=== PATIENT | male | born 1970 | race Caucasian/White ===

== ENCOUNTER 2017-01-11 12:37 | Inpatient (IN) | payer BC ==
[~2017-01-11] VITALS: Ht 185.4 cm; Wt 114.9 kg
[~2017-01-11 12:37] MED LIST: DRV100 PO
[2017-01-11] MEDS ORDERED: SODIUM CHLORIDE 0.9% 1000ML 1,000 ML IV STA (13:09)
--- NOTE | 2017-01-11 13:11 | EMERGENCY ROOM VISIT NOTE ---
History First contact with patient: 12:56 Chief Complaint: FEVER Stated Complaint: INSECT BITE TO LEFT UPPER LEG, FEVER History of Present Illness The patient is a 46 year old male who presents to the Emergency Room via private vehicle accompanied by family with complaints of "insect bite to left upper leg, fever". The patient states that Sunday, he was in [place] when he developed a small red bump on the left lateral thigh just inferior to the hip joint. The patient states that he believes it may be an insect bite. He then developed fevers. He states he did not take his temperature, but felt warm. He notes that the area of redness is now enlarging and the center is turning black. He notes that the pain with certain movements is a 3-4/10. At rest the pain is a 0/10. He started Bactrim every 12 hours on Sunday evening, and has had a total of 4 doses thus far. He's been taking Motrin 800 mg around- the-clock for his fever. His also had him take Benadryl, Zantac ranitidine. He denies any close contacts with similar symptoms. There is associated chills. He denies any nausea, vomiting, chest pain, shortness of breath, recent tick bites. Review of Systems A complete 10-point Review of Systems was discussed with the patient, with pertinent positives and negatives listed in the History of Present Illness. All remaining Review of Systems questions can be considered negative unless otherwise specified. Past Medical/Surgical History Medical Problems: (1) Cellulitis Family History No pertinent family history. Social History Smoking Status: Never Smoker Social History: Patient is currently employed. He competes in [employer]. Current/Historical Medications Scheduled Sulfamethoxazole-Trimethoprim (Bactrim Ds 800MG/160MG), 1 TAB PO BID Allergies Coded Allergies: No Known Allergies (Unverified , 06/01/04) Physical Exam Vital Signs Date Time Temp Pulse Resp B/P Pulse Ox O2 Delivery O2 Flow Rate FiO2 01/11/17 14:28 62 22 130/79 96 Room Air 01/11/17 13:37 95 Room Air 01/11/17 13:28 80 01/11/17 12:45 36.9 76 18 157/89 95 Room Air Physical Exam VITAL SIGNS - Vital signs and nursing notes were reviewed. Afebrile, hypertensive 157/89, non-tachycardic and is saturating well on room air at 95%. GENERAL -46-year-old male appearing his stated age who is in no acute distress. Communicates well with provider and answers questions appropriately. SKIN -there is a 13 x 25 cm erythematous region, with a central ascending about 8cm x8cm indurated darkened erythematous region with a 2 cm x 2 cm black center. This is nonfluctuant. HEAD - NC/AT. EYES - PERRL with EOMI bilaterally. Sclera anicteric. Palpebral conjunctiva pink and moist with no injection noted. EARS - No deformities of external structures noted on gross examination bilaterally. NOSE - Midline and without cyanosis. No epistaxis or purulent drainage noted. MOUTH/OROPHARYNX - Without perioral cyanosis. Buccal mucosa pink and moist and without leukoplakia. Tongue midline with equal elevation of palate bilaterally. No tonsillar hypertrophy, erythema, or exudates noted. Fair dentition noted. NECK - Neck with FROM. Supple to palpation. No lymphadenopathy noted. No nuchal rigidity. No meningismus. LUNGS - Chest wall symmetric without accessory muscle use, intercostals retractions, or central cyanosis. Normal vesicular breath sounds CTA B/L. No wheezes, rales, or rhonchi appreciated. CARDIAC - RRR with S1/S2. No murmur, rubs, or gallops appreciated. ABDOMEN - Abdominal contour without pulsations or visible masses. BS normoactive all four quadrants. No tenderness, palpable masses, hepatosplenomegaly, or ascites noted. EXTREMITIES - No clubbing or peripheral cyanosis. No pretibial edema present. Skin as described above. Remainder of the left lower extremity is unremarkable. No lymphangitic streaking. +5/5 strength noted in UE/LE bilaterally. Medical Decision & Procedures ER Provider Diagnostic Interpretation: LEFT THIGH ULTRASOUND CLINICAL HISTORY: Left thigh induration with darkened center. COMPARISON STUDY: No previous studies for comparison. FINDINGS: Sonography of the left thigh was performed and demonstrated no fluid collection to suggest an abscess. There was subcutaneous edema. Subcutaneous gas is difficult to assess for by sonography. IMPRESSION: No left thigh abscess identified by sonography. Left thigh subcutaneous edema which may reflect cellulitis. Electronically signed by: Ronnie Land M.D. 01/11/2017 2:12 PM Dictated Date/Time: 01/11/2017 2:10 PM Laboratory Results 01/11/17 13:20 Red Blood Count 4.82, Mean Corpuscular Volume 90.9, Mean Corpuscular Hemoglobin 30.9, Mean Corpuscular Hemoglobin Concent 34.0, Mean Platelet Volume 10.1, Neutrophils (%) (Auto) 65.1, Lymphocytes (%) (Auto) 21.7, Monocytes (%) (Auto) 11.9, Eosinophils (%) (Auto) 0.9, Basophils (%) (Auto) 0.2, Neutrophils # (Auto ) 4.12, Lymphocytes # (Auto) 1.37, Monocytes # (Auto) 0.75, Eosinophils # (Auto ) 0.06, Basophils # (Auto) 0.01 01/11/17 13:20 Test 01/11/17 13:20 01/11/17 13:35 White Blood Count 6.32 K/uL (4.8-10.8) Red Blood Count 4.82 M/uL (4.7-6.1) Hemoglobin 14.9 g/dL (14.0-18.0) Hematocrit 43.8 % (42-52) Mean Corpuscular Volume 90.9 fL (80-100) Mean Corpuscular Hemoglobin 30.9 pg (25-34) Mean Corpuscular Hemoglobin Concent 34.0 g/dl (32-36) Platelet Count 156 K/uL (130-400) Mean Platelet Volume 10.1 fL (7.4-10.4) Neutrophils (%) (Auto) 65.1 % Lymphocytes (%) (Auto) 21.7 % Monocytes (%) (Auto) 11.9 % Eosinophils (%) (Auto) 0.9 % Basophils (%) (Auto) 0.2 % Neutrophils # (Auto) 4.12 K/uL (1.4-6.5) Lymphocytes # (Auto) 1.37 K/uL (1.2-3.4) Monocytes # (Auto) 0.75 K/uL (0.11-0.59) Eosinophils # (Auto) 0.06 K/uL (0-0.5) Basophils # (Auto) 0.01 K/uL (0-0.2) RDW Standard Deviation 43.5 fL (36.4-46.3) RDW Coefficient of Variation 12.9 % (11.5-14.5) Immature Granulocyte % (Auto) 0.2 % Immature Granulocyte # (Auto) 0.01 K/uL (0.00-0.02) Anion Gap 6.0 mmol/L (3-11) Est Creatinine Clear Calc Drug Dose 101.1 ml/min Estimated GFR () 83.0 Estimated GFR (Non- 71.6 BUN/Creatinine Ratio 11.1 (10-20) Calcium Level 8.4 mg/dl (8.5-10.1) Total Bilirubin 0.4 mg/dl (0.2-1) Aspartate Amino Transf (AST/SGOT) 27 U/L (15-37) Alanine Aminotransferase (ALT/SGPT) 49 U/L (12-78) Alkaline Phosphatase 78 U/L (45-117) Total Protein 7.2 gm/dl (6.4-8.2) Albumin 3.3 gm/dl (3.4-5.0) Globulin 3.9 gm/dl (2.5-4.0) Albumin/Globulin Ratio 0.8 (0.9-2) Bedside Lactic Acid Venous 0.78 mmol/L (0.90-1.70) Medications Administered Medications (Trade) Dose Ordered Sig/Rosario Route Start Time Stop Time Status Last Admin Dose Admin Sodium Chloride 1,000 ml @ 999 mls/hr Q1H1M STAT IV 01/11/17 13:09 01/11/17 14:09 DC 01/11/17 13:09 999 MLS/HR Vancomycin HCl/ Sodium Chloride (Vancomycin Inj/ Nss 500ml) 546 ml @ 200 mls/hr ONE STAT IV 01/11/17 13:28 01/11/17 16:11 DC 01/11/17 14:25 200 MLS/HR Piperacillin Sod/ Tazobactam Sod 4.5 gm 4.5 gm NOW STAT IV 01/11/17 13:28 01/11/17 13:31 DC 01/11/17 13:28 4.5 GM Clindamycin Phosphate/Dextrose (Cleocin Iv/ Dextrose Add-Mineral 100ML) 106 ml @ 100 mls/hr NOW ONCE IV 01/11/17 13:30 01/11/17 14:33 DC 01/11/17 14:39 100 MLS/HR Acetaminophen (Tylenol Tab) 650 mg Q4H PRN PO 01/11/17 15:45 02/10/17 15:44 01/11/17 22:08 650 MG Medical Decision Patient was seen and evaluated as above. He presents today with stable vital signs, however he has received [id number] Motrin. Chief complaint is insect bite with fever. Clinically he appears to have cellulitis, with a central indurated region. IV access was initiated, and the above workup was performed. There is concern for sepsis given his subjective history. He certainly has sialitis on exam, there is concern for abscess. Consent was obtained. No fluid collection noted. I did outline the area of induration with a felt-tipped pen. Patient did not want any for pain. He was hydrated with normal saline. I did review the case with our pharmacist, and the decision was made to give the patient 4.5 g of Zosyn, 2300mg of vancomycin, and 900 mg of clindamycin. Patient tolerated this well. At this time, I do believe it is appropriate to consider admission for the patient. All of his vital signs are stable, he typically has failed outpatient management with Bactrim. I did discuss the case with my attending, and subsequently the hospitalist. Lab work does not reveal any concerning emergent findings. I did discuss the case with hospitalist, who agreed to further evaluate the patient. Please refer to further documentation regarding his stay. In evaluation treatment this patient following differential diagnoses entertained: Cellulitis, SIRS, sepsis, abscess, among others. Impression Primary Impression: Cellulitis Departure Information Dispostion Admitted as an inpatient Condition FAIR Referrals No Doctor, Assigned (PCP) Patient Instructions My [facility]
[2017-01-11] MEDS ORDERED: PIPERACILLIN/TAZOBACTAM 4.5 GM/100ML D5W IV STA (13:28)
[2017-01-11] MEDS ORDERED: VANCOMYCIN INJ 2,300 MG in SODIUM CHLORIDE 0.9% 500ML 500 ML IV STA (13:28)
[2017-01-11] MEDS ORDERED: CLINDAMYCIN IV 900 MG in DEXTROSE 5% ADD-VANTAGE 100ML 100 ML IV ONE (13:30)
[2017-01-11 13:55] LABS: BASO % 0.2 %; BASO ABS # 0.01 K/uL (0-0.2); COMPLETE YES; EOS % 0.9 %; HEMATOCRIT 43.8 % (42-52); IG% 0.2 %; LYMPH % 21.7 %; LYMPH ABS # 1.37 K/uL (1.2-3.4); MEAN CELL VOLUME 90.9 fL (80-100); MEAN CORPUSCULAR HEMOGLOBIN 30.9 pg (25-34); MEAN PLATELET VOLUME 10.1 fL (7.4-10.4); MONO % 11.9 %; NEUT % 65.1 %; PLATELET COUNT 156 K/uL (130-400); RED BLOOD COUNT 4.82 M/uL (4.7-6.1); WHITE BLOOD COUNT 6.32 K/uL (4.8-10.8)
[2017-01-11 14:13] LABS: BUN/CREATININE RATIO 11.1 (10-20); CALCIUM 8.4 mg/dl (8.5-10.1); CREATININE 1.2 mg/dl (0.60-1.40); POTASSIUM 3.8 mmol/L (3.5-5.1)
--- NOTE | 2017-01-11 14:13 | DIAGNOSTIC IMAGING REPORT ---
LEFT THIGH ULTRASOUND CLINICAL HISTORY: Left thigh induration with darkened center. COMPARISON STUDY: No previous studies for comparison. FINDINGS: Sonography of the left thigh was performed and demonstrated no fluid collection to suggest an abscess. There was subcutaneous edema. Subcutaneous gas is difficult to assess for by sonography. IMPRESSION: No left thigh abscess identified by sonography. Left thigh subcutaneous edema which may reflect cellulitis. Electronically signed by: Ronnie Land M.D. 01/11/2017 2:12 PM Dictated Date/Time: 01/11/2017 2:10 PM
[2017-01-11 14:16] LABS: ALB/GLOB RATIO 0.8 (0.9-2)
[2017-01-11] MEDS ORDERED: SULF800T23 PO (14:59)
[2017-01-11] MEDS ORDERED: MAGNESIUM HYDROXIDE SUSP 30 ML UDC PO PRN (15:45)
[2017-01-11] MEDS ORDERED: ACETAMINOPHEN 325 MG TAB PO PRN (15:45)
[2017-01-11] MEDS ORDERED: ONDANSETRON INJ 2 MG/ML 2 ML VIAL IV PRN (15:45)
--- NOTE | 2017-01-11 16:00 | History and Physical ---
History & Physical Date & Time of Service: January 11, 2017 at 15:51 Chief Complaint: Insect Bite To Left Upper Leg, Fever Primary Care Physician: No Doctor, Assigned History of Present Illness Source: patient, spouse 46 y/o M c/o bug bite that isn't getting better. Pt spends a lot of time in the [place] [place] [place] in general and was recently competing in an [employer] competition in [place]. While he was the on Sunday night, he noted a bug bite on his L upper posterior thigh. It was red, swollen, and painful, but not itching. He tried to squeeze it, but nothing came out and the skin did not break. Sunday AM, he noted that there was a black area in the center of the red region. Pt started having fevers. He was started on Bactrim on Sunday, however there has been no improvement and possibly the area looks worse. Ongoing fevers. He has not been able to go to work as he is employed as a parcel post truck driver and is unable to sit due to the pain from this region. No other sx. Pt denies fever, SOB, chest pain, abd pain, n/v/c/d. 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 Pt denies prior hx of cellulitis or issues with bug bites. He did not see what bit him. No prior hx of MRSA or known MRSA contacts. ROS as noted above, otherwise neg. Past Medical/Surgical History Denies medical hx Social History Smoking Status: Never Smoker Alcohol Use: occasionally (once a week or less) Drug Use: none Multi-Drug Resistant Organisms History of MDRO: No Allergies Coded Allergies: No Known Allergies (Unverified , 06/01/04) Home Medications Scheduled Sulfamethoxazole-Trimethoprim (Bactrim Ds 800MG/160MG), 1 TAB PO BID Physical Exam Vital Signs Date Time Temp Pulse Resp B/P Pulse Ox O2 Delivery O2 Flow Rate FiO2 01/11/17 14:28 62 22 130/79 96 Room Air 01/11/17 13:37 95 Room Air 01/11/17 13:28 80 01/11/17 12:45 36.9 76 18 157/89 95 Room Air General Appearance: WD/WN, no apparent distress Head: normocephalic, atraumatic Respiratory/Chest: lungs clear, normal breath sounds, no respiratory distress Cardiovascular: regular rate, rhythm, normal peripheral pulses Abdomen/GI: non tender, soft Extremities/Musculoskelatal: no calf tenderness, no pedal edema Neurologic/Psych: alert, normal mood/affect, oriented x 3 Skin: warm/dry, + pertinent finding (Area around the superior posterior thigh is red and swollen with a central focus that is more swollen, hard, warm to touch with a central black eschar noted. Region around this area is less red and warm, also soft. Marker placed by ED staff) Diagnostics Laboratory Results Results Past 24 Hours Test 01/11/17 13:20 01/11/17 13:35 Range/Units White Blood Count 6.32 4.8-10.8 K/uL Red Blood Count 4.82 4.7-6.1 M/uL Hemoglobin 14.9 14.0-18.0 g/dL Hematocrit 43.8 42-52 % Mean Corpuscular Volume 90.9 80-100 fL Mean Corpuscular Hemoglobin 30.9 25-34 pg Mean Corpuscular Hemoglobin Concent 34.0 32-36 g/dl Platelet Count 156 130-400 K/uL Mean Platelet Volume 10.1 7.4-10.4 fL Neutrophils (%) (Auto) 65.1 % Lymphocytes (%) (Auto) 21.7 % Monocytes (%) (Auto) 11.9 % Eosinophils (%) (Auto) 0.9 % Basophils (%) (Auto) 0.2 % Neutrophils # (Auto) 4.12 1.4-6.5 K/uL Lymphocytes # (Auto) 1.37 1.2-3.4 K/uL Monocytes # (Auto) 0.75 0.11-0.59 K/uL Eosinophils # (Auto) 0.06 0-0.5 K/uL Basophils # (Auto) 0.01 0-0.2 K/uL RDW Standard Deviation 43.5 36.4-46.3 fL RDW Coefficient of Variation 12.9 11.5-14.5 % Immature Granulocyte % (Auto) 0.2 % Immature Granulocyte # (Auto) 0.01 0.00-0.02 K/uL Sodium Level 143 136-145 mmol/L Potassium Level 3.8 3.5-5.1 mmol/L Chloride Level 108 98-107 mmol/L Carbon Dioxide Level 29 21-32 mmol/L Anion Gap 6.0 3-11 mmol/L Blood Urea Nitrogen 13 7-18 mg/dl Creatinine 1.20 0.60-1.40 mg/dl Est Creatinine Clear Calc Drug Dose 101.1 ml/min Estimated GFR () 83.0 Estimated GFR (Non- 71.6 BUN/Creatinine Ratio 11.1 10-20 Random Glucose 107 70-99 mg/dl Calcium Level 8.4 8.5-10.1 mg/dl Total Bilirubin 0.4 0.2-1 mg/dl Aspartate Amino Transf (AST/SGOT) 27 15-37 U/L Alanine Aminotransferase (ALT/SGPT) 49 12-78 U/L Alkaline Phosphatase 78 45-117 U/L Total Protein 7.2 6.4-8.2 gm/dl Albumin 3.3 3.4-5.0 gm/dl Globulin 3.9 2.5-4.0 gm/dl Albumin/Globulin Ratio 0.8 0.9-2 Bedside Lactic Acid Venous 0.78 0.90-1.70 mmol/L Microbiology Results 01/11/17 Blood Culture, Received Pending 01/11/17 Blood Culture, Received Pending Diagnostic Radiology L LE US: neg for abscess, suggests cellulitis Impression Assessment and Plan 46 y/o M who was admitted on 01/11 with L LE cellulitis L LE cellulitis: Failed outpt abx with bactrim L LE US: neg for abscess, suggests cellulitis Started on vanco, zosyn, clinda in the ED, will continue vanco and monitor Afebrile in the setting of several ibuprofen doses today, WBC WNL Blood cx pending Other: Full code Ambulation for DVT proph given likely short duration of stay Reg diet Level of Care Med/Surg VTE Prophylaxis VTE Risk Assessment Done? Y/N: Yes Risk Level: Low
--- NOTE | 2017-01-11 16:29 | Pharmacy Progress Note ---
Pharmacy Abx Initial Consult Date of Service January 11, 2017. Pharmacy Dosing Scope Date of Consult: 01/11/17 Consultation requested by: Dr. Coffman Pharmacy is consulted to initiate Vancomycin IV dosing therapy, order appropriate labs and adjust drug dose/frequency. Subjective The patient is a 46 year old male admitted on 01/11/17 s/p insect bite. Objective Height (Feet): 6 Height (Inches): 1.00 Weight (Kilograms): 114.900 Vital Signs (Past 12Hrs) Vital Signs Past 12 Hours Date Time Temp Pulse Resp B/P Pulse Ox O2 Delivery O2 Flow Rate FiO2 01/11/17 14:28 62 22 130/79 96 Room Air 01/11/17 13:37 95 Room Air 01/11/17 13:28 80 01/11/17 12:45 36.9 76 18 157/89 95 Room Air Lab Results (24Hrs) Test 01/11/17 13:20 01/11/17 13:35 01/11/17 15:41 White Blood Count 6.32 K/uL (4.8-10.8) Red Blood Count 4.82 M/uL (4.7-6.1) Hemoglobin 14.9 g/dL (14.0-18.0) Hematocrit 43.8 % (42-52) Mean Corpuscular Volume 90.9 fL (80-100) Mean Corpuscular Hemoglobin 30.9 pg (25-34) Mean Corpuscular Hemoglobin Concent 34.0 g/dl (32-36) Platelet Count 156 K/uL (130-400) Mean Platelet Volume 10.1 fL (7.4-10.4) Neutrophils (%) (Auto) 65.1 % Lymphocytes (%) (Auto) 21.7 % Monocytes (%) (Auto) 11.9 % Eosinophils (%) (Auto) 0.9 % Basophils (%) (Auto) 0.2 % Neutrophils # (Auto) 4.12 K/uL (1.4-6.5) Lymphocytes # (Auto) 1.37 K/uL (1.2-3.4) Monocytes # (Auto) 0.75 K/uL (0.11-0.59) Eosinophils # (Auto) 0.06 K/uL (0-0.5) Basophils # (Auto) 0.01 K/uL (0-0.2) RDW Standard Deviation 43.5 fL (36.4-46.3) RDW Coefficient of Variation 12.9 % (11.5-14.5) Immature Granulocyte % (Auto) 0.2 % Immature Granulocyte # (Auto) 0.01 K/uL (0.00-0.02) Sodium Level 143 mmol/L (136-145) Potassium Level 3.8 mmol/L (3.5-5.1) Chloride Level 108 mmol/L (98-107) Carbon Dioxide Level 29 mmol/L (21-32) Anion Gap 6.0 mmol/L (3-11) Blood Urea Nitrogen 13 mg/dl (7-18) Creatinine 1.20 mg/dl (0.60-1.40) Est Creatinine Clear Calc Drug Dose 101.1 ml/min Estimated GFR () 83.0 Estimated GFR (Non- 71.6 BUN/Creatinine Ratio 11.1 (10-20) Random Glucose 107 mg/dl (70-99) Calcium Level 8.4 mg/dl (8.5-10.1) Total Bilirubin 0.4 mg/dl (0.2-1) Aspartate Amino Transf (AST/SGOT) 27 U/L (15-37) Alanine Aminotransferase (ALT/SGPT) 49 U/L (12-78) Alkaline Phosphatase 78 U/L (45-117) Total Protein 7.2 gm/dl (6.4-8.2) Albumin 3.3 gm/dl (3.4-5.0) Globulin 3.9 gm/dl (2.5-4.0) Albumin/Globulin Ratio 0.8 (0.9-2) Bedside Lactic Acid Venous 0.78 mmol/L (0.90-1.70) Micro Results Date/Time Source Procedure Growth Status 01/11/17 13:30 Blood Blood Culture Pending Received 01/11/17 13:20 Blood Blood Culture Pending Received Risk Factors for Resistance * Antimicrobial use within the last 90 days (Bactrim 48 hours [employer] PROCESSING [employer]) Assessment & Plan Assessment 46 year old male presents to ED with LLE cellulitis s/p insect bite a few days ago. Pt noticed area worsening, started bactrim as an outpatient but did not improve and remained febrile. Vancomycin to be initiated as monotherapy. Blood cultures pending. Plan Vancomycin IV * Loading dose: 2300 mg (20 mg/kg) * Maintenance dose: 1750 mg IV (15 mg/kg) every 10 hours * Goal trough level for cellulitis: 15 to 20 mcg/mL (if blood cultures positive- -> 15-20 mcg/mL) * Trough level ordered for 01/13/17 @0330 prior to 0400 dose Pharmacy will continue to follow and will adjust dose/frequency as necessary. Thank you.
[2017-01-11] MEDS ORDERED: VANCOMYCIN CONSULT ACTIVE PRN (16:30)
[2017-01-11 17:48] VITALS: BP 123/76; PULSE 66; O2SAT 96; Ht 185.4 cm; Wt 114.9 kg
[2017-01-11 17:50] LABS: LYME DISEASE AB IGM NEG (NEG)
[2017-01-11 17:51] LABS: LYME DISEASE AB IGG NEG (NEG)
[2017-01-11] MEDS: VANCOMYCIN INJ 1,750 MG in SODIUM CHLORIDE 0.9% 500ML 500 ML IV SCH (21:42)
[2017-01-11 22:08] VITALS: TEMP 37.5
[2017-01-11 23:00] VITALS: BP 134/75; PULSE 70; TEMP 36.9; O2SAT 93
[2017-01-12 06:48] LABS: CREATININE 1.2 mg/dl (0.60-1.40)
[2017-01-12 07:42] VITALS: BP 146/84; PULSE 81; TEMP 37; O2SAT 93
[2017-01-12] MEDS: VANCOMYCIN INJ 1,750 MG in SODIUM CHLORIDE 0.9% 500ML 500 ML IV SCH (08:01)
[2017-01-12] MEDS ORDERED: DEXTROSE 5% IV ONE (08:45)
[2017-01-12] MEDS ORDERED: DOXYCYCLINE IV ONE (08:45)
--- NOTE | 2017-01-12 13:15 | Medical Consult ---
Consultation Date of Consultation: January 12, 2017. Attending Physician: Catia Shah MD Reason for Consultation: Lt leg infection History of Present Illness "bug bite" Lt thigh- 3-4 days prior- now admitted with increasing cellulitis. on Bactrim for 2 days with worsening/ fever. Lyme serolgy negative. U/S- cellulitis, no collection seen. Social History Smoking Status: Never Smoker Alcohol Use: occasionally (once a week or less) Drug Use: none Allergies Coded Allergies: No Known Allergies (Unverified , 06/01/04) Current Inpatient Medications Current Inpatient Medications Medications (Trade) Dose Ordered Sig/Rosario Route Start Time Stop Time Status Last Admin Dose Admin Acetaminophen (Tylenol Tab) 650 mg Q4H PRN PO 01/11/17 15:45 02/10/17 15:44 01/11/17 22:08 650 MG Magnesium Hydroxide (Milk Of Magnesia Susp) 30 ml Q6H PRN PO 01/11/17 15:45 02/10/17 15:44 Ondansetron HCl 4 mg 4 mg Q6H PRN IV 01/11/17 15:45 02/10/17 15:44 Doxycycline Hyclate 100 mg/ Dextrose 110 ml @ 50 mls/hr Q12 IV 01/13/17 09:00 01/22/17 08:59 Ceftriaxone Sodium/Dextrose (Rocephin Inj/ Dextrose Add-[place] 50ML) 50 ml @ 100 mls/hr Q24H IV 01/12/17 13:00 01/22/17 12:59 UNV Review of Systems Constitutional: + fever Respiratory: No cough, No wheezing Abdomen: No nausea, No vomiting Musculoskeletal: + swelling Genitourinary - Male: No dysuria Integumentary: + rash Physical Exam Date Time Temp Pulse Resp B/P Pulse Ox O2 Delivery O2 Flow Rate FiO2 01/12/17 08:10 Room Air 01/12/17 07:42 37.0 81 16 146/84 93 Room Air 01/12/17 00:00 Room Air 01/11/17 23:00 36.9 70 18 134/75 93 Room Air 01/11/17 22:08 37.5 01/11/17 17:48 66 18 123/76 96 Room Air 01/11/17 17:05 69 20 125/74 96 Room Air 01/11/17 16:25 71 23 129/79 96 Room Air 01/11/17 14:28 62 22 130/79 96 Room Air 01/11/17 13:37 95 Room Air 01/11/17 13:28 80 Lt posterolateral thigh with significant erythema, edema and 2-3 cm eschar- palpation showing small amt of purulence General Appearance: no apparent distress Eyes: sclerae normal Neck: supple Respiratory/Chest: no respiratory distress Abdomen/GI: non tender Skin: + pertinent finding (Lt thigh erythema) Laboratory Results Last 24 Hours Test 01/11/17 13:20 01/11/17 13:35 01/11/17 16:43 01/12/17 05:50 White Blood Count 6.32 K/uL Red Blood Count 4.82 M/uL Hemoglobin 14.9 g/dL Hematocrit 43.8 % Mean Corpuscular Volume 90.9 fL Mean Corpuscular Hemoglobin 30.9 pg Mean Corpuscular Hemoglobin Concent 34.0 g/dl Platelet Count 156 K/uL Mean Platelet Volume 10.1 fL Neutrophils (%) (Auto) 65.1 % Lymphocytes (%) (Auto) 21.7 % Monocytes (%) (Auto) 11.9 % Eosinophils (%) (Auto) 0.9 % Basophils (%) (Auto) 0.2 % Neutrophils # (Auto) 4.12 K/uL Lymphocytes # (Auto) 1.37 K/uL Monocytes # (Auto) 0.75 K/uL Eosinophils # (Auto) 0.06 K/uL Basophils # (Auto) 0.01 K/uL RDW Standard Deviation 43.5 fL RDW Coefficient of Variation 12.9 % Immature Granulocyte % (Auto) 0.2 % Immature Granulocyte # (Auto) 0.01 K/uL Sodium Level 143 mmol/L Potassium Level 3.8 mmol/L Chloride Level 108 mmol/L Carbon Dioxide Level 29 mmol/L Anion Gap 6.0 mmol/L Blood Urea Nitrogen 13 mg/dl Creatinine 1.20 mg/dl 1.20 mg/dl Est Creatinine Clear Calc Drug Dose 101.1 ml/min 101.1 ml/min Estimated GFR () 83.0 83.0 Estimated GFR (Non- 71.6 71.6 BUN/Creatinine Ratio 11.1 Random Glucose 107 mg/dl Calcium Level 8.4 mg/dl Total Bilirubin 0.4 mg/dl Aspartate Amino Transf (AST/SGOT) 27 U/L Alanine Aminotransferase (ALT/SGPT) 49 U/L Alkaline Phosphatase 78 U/L Total Protein 7.2 gm/dl Albumin 3.3 gm/dl Globulin 3.9 gm/dl Albumin/Globulin Ratio 0.8 Bedside Lactic Acid Venous 0.78 mmol/L Lyme Disease IgG Antibody NEG Lyme Disease IgM Antibody NEG Assessment & Plan 01/12/17- adm with fever and Lt thigh cellulitis.- I feel eschar should be debrided- see procedure. eschar removed, abscess cavity found- deep, 2-3 cm- drained and cultured. consult wound care nurses- f/u when d/c'd with wound clinic.
[2017-01-12] MEDS ORDERED: LIDOCAINE HCL 1% 20 ML VIAL ONE (13:29)
[2017-01-12] MEDS ORDERED: NURSING VERBAL MED ORDER ONE (13:45)
[2017-01-12] MEDS ORDERED: HYDROCODONE/ACETAMOPHEN 5/325MG TAB PO PRN ×2 (14:00)
[2017-01-12] MEDS ORDERED: CEFTRIAXONE SOD INJ 1 GM in DEXTROSE 5% ADD-VANTAGE 50ML 50 ML IV SCH (14:00)
[2017-01-12 15:12] VITALS: BP 176/81; PULSE 72; TEMP 36.9; O2SAT 97
--- NOTE | 2017-01-12 15:21 | OPERATIVE REPORT ---
DATE OF OPERATION: 01/12/2017 NAME OF OPERATION: Incision and drainage with excision of necrotic tissue, left thigh abscess. PREOPERATIVE DIAGNOSIS: Left thigh abscess. POSTOPERATIVE DIAGNOSIS: Same with eschar. STAFF SURGEON: Dr. Martin Smith. ANESTHESIA: 1% plain lidocaine. DESCRIPTION OF PROCEDURE: The patient was in his hospital bed. His left posterolateral thigh was prepped with alcohol. Then, it was anesthetized around a 2-cm eschar using 1% plain lidocaine. Incision was made around the eschar carrying dissection down into the subcutaneous tissue. There was some necrotic tissue. At this point, I could see purulent fluid oozing from the base. On additional incision and probing, I was able to find a relatively large cavity of approximately 2-3 cm deep, which was dissected using a hemostat and then cultured. A corner of the 4 x 4 was packed down into the cavity and then the wound covered with dry gauze and then wrapped with Kerlix. The patient tolerated the procedure well. I attest to the content of the Intraoperative Record and any orders documented therein. Any exceptio ns are noted below.
--- NOTE | 2017-01-12 16:29 | Hospitalist Progress Note ---
Hospitalist Progress Note Date of Service January 12, 2017. (Fatou Coates PA-C) Subjective Pt evaluation today including: conversation w/ patient, conversation w/ family (), physical exam, chart review, lab review, review of studies, review of inpatient medication list Patient seen and evaluated. No acute events overnight. Patient reporting that he felt hot throughout the night and previously had a headache which resolved. Denies muscle aches. Reviewed imaging of his thigh that started as a flat erythematous round lesion with central necrosis - he discovered this Sunday after showering -- He does report trying to squeeze the area thinking it was an ingrown hair or pimple but only got a clear slightly red fluid but this was minimal Does not recall or see a bug actually bite him but reports being in the [place] frequently. Also reports a history of tinea cruris but that was approx. 1 year ago with no current issues and this lesion does not produce pruritus. Constitutional: + problem reported (feels "hot"), No chills, No fever Eyes: No worsening of vision ENT: No nasal symptoms, No sore throat, No trouble swallowing Respiratory: No cough, No shortness of breath Cardiovascular: No chest pain Abdomen: No constipation, No diarrhea, No nausea, No pain, No vomiting Musculoskeletal: No calf pain Male : No dysuria Neurologic: No balance problems, No numbness/tingling, No vertigo Heme: No abnormal bleeding/bruising, No clotting problems Skin: + new/changing skin lesions (L thigh erythema and edema) (Fatou Coates, CHELSEAC) Medications Current Inpatient Medications Medications (Trade) Dose Ordered Sig/Rosario Route Start Time Stop Time Status Last Admin Dose Admin Acetaminophen (Tylenol Tab) 650 mg Q4H PRN PO 01/11/17 15:45 02/10/17 15:44 01/11/17 22:08 650 MG Magnesium Hydroxide (Milk Of Magnesia Susp) 30 ml Q6H PRN PO 01/11/17 15:45 02/10/17 15:44 Ondansetron HCl 4 mg 4 mg Q6H PRN IV 01/11/17 15:45 02/10/17 15:44 Doxycycline Hyclate 100 mg/ Dextrose 110 ml @ 50 mls/hr Q12 IV 01/13/17 09:00 01/22/17 08:59 Ceftriaxone Sodium/Dextrose (Rocephin Inj/ Dextrose Add-Dixon 50ML) 50 ml @ 100 mls/hr DAILY@1400 IV 01/12/17 14:00 01/22/17 13:59 01/12/17 14:11 100 MLS/HR Acetaminophen/ Hydrocodone Bitart (Riggins 5/325 Tab) 1 tab Q4 PRN PO 01/12/17 14:00 01/26/17 13:59 Acetaminophen/ Hydrocodone Bitart (Riggins 5/325 Tab) 2 tab Q4 PRN PO 01/12/17 14:00 01/26/17 13:59 (Fatou Coates PA-C) Objective Vital Signs Date Time Temp Pulse Resp B/P Pulse Ox O2 Delivery O2 Flow Rate FiO2 01/12/17 15:12 36.9 72 18 176/81 97 Room Air 01/12/17 08:10 Room Air 01/12/17 07:42 37.0 81 16 146/84 93 Room Air 01/12/17 00:00 Room Air 01/11/17 23:00 36.9 70 18 134/75 93 Room Air 01/11/17 22:08 37.5 01/11/17 17:48 66 18 123/76 96 Room Air 01/11/17 17:05 69 20 125/74 96 Room Air 01/11/17 16:25 71 23 129/79 96 Room Air (Fatou Coates, PA-C) Physical Exam General Appearance: WD/WN, no apparent distress Eyes: sclerae normal ENT: hearing grossly normal Neck: supple, no JVD, trachea midline Respiratory/Chest: lungs clear, normal breath sounds, no respiratory distress, no accessory muscle use Cardiovascular: regular rate, rhythm, no gallop, no murmur Abdomen: normal bowel sounds, non tender, soft Extremities: no calf tenderness Neurologic/Psychiatric: alert, oriented x 3 Skin: + pertinent finding (large erythematous raised lesion of L thigh with central necrosis with extensive mild erythema ) (Fatou Coates, PA-C) Laboratory Results Last 24 Hours Test 01/11/17 16:43 01/12/17 05:50 Lyme Disease IgG Antibody NEG Lyme Disease IgM Antibody NEG Creatinine 1.20 mg/dl Est Creatinine Clear Calc Drug Dose 101.1 ml/min Estimated GFR () 83.0 Estimated GFR (Non- 71.6 (Fatou Coates, HO) Assessment and Plan 46 y/o M who was admitted on 01/11 with LLE cellulitis LLE Cellulitis: Concern for both Cellulitis and Lyme Disease - Took Bactrim BID since Sunday with progression of symptoms - Lyme titers negative - Ceftriaxone 1 g IV daily - Doxycycline 200 mg IV x 1 dose today then resume 100 mg IV BID - General Surgery consulted - recommendations reviewed - S/P I&D with evidence of abscess -- Consulted wound care DVT Prophylaxis: Ambulation; VENUS/SCDs Code Status: FULL RESUSCITATION Disposition: - Await BCx and convert to po antibiotics - wound cx pending Continued [facility] stay due to: multiple IV medications needed Discharge planning: home (Fatou Coates, HO) Reviewed: Pt Seen/Exam by Me (Catia Shah MD) History Physician Pathology Transcriptionist Supervision Note: I interviewed and examined the patient. Discussed with LAURIE Coates and agree with findings and plan as documented in the note. Any exceptions or clarifications are listed here: Pt with some improvement of erythema since yesterday's marker line drawn around area of cellulitis. Concern for possible Lyme and this being Bullseye rash with central necrosis from tick bite vs some other insect. Afebrile here since admission. Changed abx to doxy which covers for MRSA and for Lyme and would finish out 2 weeks of po doxy regardless of what is in cultures to cover for Lyme -otherwise, if culture grows out strep or other organism, can provide additional coverage for po abx based on wound culture. For now, continue Rocephin. -Appreciate Gen Surgery consultation and debridement of necrotic tissue and drainage of deep abscess not seen on imaging on admission. -Drainage alone of abscess should help him improve significantly -could likely dc to home tomorrow with Wound Clinic follow up to be arranged NAD, VSS RRR no mgr CTAB breathing unlabored Left lateral thigh with large area of erythema and warmth, with 2-3cm central region of black eschar, minimal tenderness Documented By: Catia Shah (Catia Shah MD)
[2017-01-12] MEDS ORDERED: HydrALAZINE HCL 20 MG/ML VIAL IV. PRN (19:30)
[2017-01-12 19:47] VITALS: BP 137/76
[2017-01-12 23:18] VITALS: BP 139/70; PULSE 65; TEMP 36.8; O2SAT 96
[2017-01-13] VITALS (7 sets, daily range): BP systolic 123–161; BP diastolic 69–99; PULSE 65–80; TEMP 36.3–36.8; O2SAT 92–96
[2017-01-13] MEDS ORDERED: VANCOMYCIN TROUGH SCH (03:30)
[2017-01-13 05:49] LABS: BASO % 0.3 %; BASO ABS # 0.02 K/uL (0-0.2); COMPLETE YES; EOS % 1.8 %; IG% 0.2 %; LYMPH % 30.2 %; LYMPH ABS # 1.85 K/uL (1.2-3.4); MEAN CELL VOLUME 91.3 fL (80-100); MEAN CORPUSCULAR HEMOGLOBIN 30.8 pg (25-34); MEAN CORPUSCULAR HGB CONC 33.7 g/dl (32-36); MONO % 11.3 %; NEUT % 56.2 %; PLATELET COUNT 187 K/uL (130-400); RED BLOOD COUNT 4.71 M/uL (4.7-6.1); WHITE BLOOD COUNT 6.13 K/uL (4.8-10.8)
[2017-01-13 05:58] LABS: PROTHROMBIN TIME (PATIENT) 10.2 SECONDS (9.0-12.0)
[2017-01-13 06:22] LABS: ALKALINE PHOSPHATASE 100 U/L (45-117); ALT/SGPT 50 U/L (12-78); AST/SGOT 19 U/L (15-37); BLOOD UREA NITROGEN 12 mg/dl (7-18); BUN/CREATININE RATIO 11.3 (10-20); CALCIUM 8.9 mg/dl (8.5-10.1); CARBON DIOXIDE 32 mmol/L (21-32); CHLORIDE 108 mmol/L (98-107); GLUCOSE 104 mg/dl (70-99); POTASSIUM 4.4 mmol/L (3.5-5.1); SODIUM 143 mmol/L (136-145)
--- NOTE | 2017-01-13 07:44 | Surgery Progress Note ---
Surgery Progress Note Date of Service January 13, 2017. Subjective no significant pain Objective Vital Signs: Date Time Temp Pulse Resp B/P Pulse Ox O2 Delivery O2 Flow Rate FiO2 01/13/17 07:11 36.6 80 20 161/99 94 Room Air 01/13/17 00:00 Room Air 01/12/17 23:18 36.8 65 20 139/70 96 Room Air 01/12/17 19:47 137/76 01/12/17 16:00 Room Air 01/12/17 15:12 36.9 72 18 176/81 97 Room Air 01/12/17 08:10 Room Air 01/12/17 07:42 37.0 81 16 146/84 93 Room Air General Appearance: no apparent distress Extremities: + pertinent finding (cellulitis, purulent drainage, necrosis) Laboratory Results: Results Past 24 Hours Test 01/13/17 05:00 01/13/17 05:04 Range/Units White Blood Count 6.13 4.8-10.8 K/uL Red Blood Count 4.71 4.7-6.1 M/uL Hemoglobin 14.5 14.0-18.0 g/dL Hematocrit 43.0 42-52 % Mean Corpuscular Volume 91.3 80-100 fL Mean Corpuscular Hemoglobin 30.8 25-34 pg Mean Corpuscular Hemoglobin Concent 33.7 32-36 g/dl Platelet Count 187 130-400 K/uL Mean Platelet Volume 10.0 7.4-10.4 fL Neutrophils (%) (Auto) 56.2 % Lymphocytes (%) (Auto) 30.2 % Monocytes (%) (Auto) 11.3 % Eosinophils (%) (Auto) 1.8 % Basophils (%) (Auto) 0.3 % Neutrophils # (Auto) 3.45 1.4-6.5 K/uL Lymphocytes # (Auto) 1.85 1.2-3.4 K/uL Monocytes # (Auto) 0.69 0.11-0.59 K/uL Eosinophils # (Auto) 0.11 0-0.5 K/uL Basophils # (Auto) 0.02 0-0.2 K/uL RDW Standard Deviation 43.3 36.4-46.3 fL RDW Coefficient of Variation 12.8 11.5-14.5 % Immature Granulocyte % (Auto) 0.2 % Immature Granulocyte # (Auto) 0.01 0.00-0.02 K/uL Prothrombin Time 10.2 9.0-12.0 SECONDS Prothromb Time International Ratio 1.0 0.9-1.1 Sodium Level 143 136-145 mmol/L Potassium Level 4.4 3.5-5.1 mmol/L Chloride Level 108 98-107 mmol/L Carbon Dioxide Level 32 21-32 mmol/L Anion Gap 3.0 3-11 mmol/L Blood Urea Nitrogen 12 7-18 mg/dl Creatinine 1.10 0.60-1.40 mg/dl Est Creatinine Clear Calc Drug Dose 110.2 ml/min Estimated GFR () 92.2 Estimated GFR (Non- 79.5 BUN/Creatinine Ratio 11.3 10-20 Random Glucose 104 70-99 mg/dl Calcium Level 8.9 8.5-10.1 mg/dl Total Bilirubin 0.7 0.2-1 mg/dl Direct Bilirubin < 0.1 0-0.2 mg/dl Aspartate Amino Transf (AST/SGOT) 19 15-37 U/L Alanine Aminotransferase (ALT/SGPT) 50 12-78 U/L Alkaline Phosphatase 100 45-117 U/L Total Protein 7.0 6.4-8.2 gm/dl Albumin 3.2 3.4-5.0 gm/dl Microbiology Results 01/12/17 Gram Stain, Received Pending 01/12/17 Bacterial Culture, Received Pending Assessment & Plan 01/13/17- I do not think it is improved enough- will need OR incision/ debridement will likely need a wound vac and need to change antibiotics- cult pending Back on Vanco and switch to Zosyn. ID consult
[2017-01-13] MEDS ORDERED: PIPERACILL/TAZOBAC CONSULT ACTIVE PRN (07:45)
[2017-01-13] MEDS ORDERED: VANCOMYCIN CONSULT ACTIVE PRN (07:45)
[2017-01-13] MEDS ORDERED: PIPERACILL/TAZOBAC IV 3.375 GM in DEXTROSE 5% 100ML IV ONE (08:00)
[2017-01-13] MEDS ORDERED: BACITRACIN 50000 UNIT VIAL ONE (08:02)
[2017-01-13] MEDS ORDERED: FENTANYL CITRATE INJ 50 MCG/1 ML 2 ML VIAL ONE (08:21)
[2017-01-13] MEDS ORDERED: DEXAMETHASONE SOD INJ 4 MG/ML VIAL ONE (08:21)
[2017-01-13] MEDS ORDERED: LIDOCAINE HCL 2% 2 ML VIAL (20MG/ML) ONE (08:21)
[2017-01-13] MEDS ORDERED: NEOSTIGMINE METHYLSULFATE 5 MG/5 ML SYR ONE (08:21)
[2017-01-13] MEDS ORDERED: PROPOFOL IV EMULSION 10 MG/ML 20 ML VIAL IV ONE (08:21)
[2017-01-13] MEDS ORDERED: ROCURONIUM BROMIDE 10 MG/ML 5 ML VIAL ONE (08:21)
[2017-01-13] MEDS ORDERED: ONDANSETRON INJ 2 MG/ML 2 ML VIAL ONE (08:21)
[2017-01-13] MEDS ORDERED: MIDAZOLAM HCL 1 MG/ML 2ML VIAL ONE (08:21)
[2017-01-13] MEDS ORDERED: GLYCOPYRROLATE INJ 0.2 MG/ML VIAL ONE (08:21)
[2017-01-13] MEDS ORDERED: FLUMAZENIL 0.1 MG/1 ML 10 ML VIAL IV PRN (08:45)
[2017-01-13] MEDS ORDERED: LABETALOL HCL IV 5 MG/ML 20ML IV PRN (08:45)
[2017-01-13] MEDS ORDERED: HYDROmorphone INJ 1 MG/ML SYR IV PRN (08:45)
[2017-01-13] MEDS ORDERED: ATROPINE SULFATE 0.1 MG/ML 5ML SYR IV PRN (08:45)
[2017-01-13] MEDS ORDERED: EpHEDrine SULFATE INJ 50 MG/ML AMP IV PRN (08:45)
[2017-01-13] MEDS ORDERED: ONDANSETRON INJ 2 MG/ML 2 ML VIAL IV PRN ×2 (08:45→09:45)
[2017-01-13] MEDS ORDERED: NALOXONE HCL 0.4 MG/1 ML VIAL/CARP IV PRN (08:45)
[2017-01-13] MEDS ORDERED: PROMETHAZINE HCL INJ 12.5 MG in SODIUM CHLORIDE 0.9% 50ML 50 ML IV PRN (08:45)
[2017-01-13] MEDS ORDERED: BUPIVACAINE 0.5 % 5 MG/1 ML MPF 30ML VIAL ONE (08:46)
[2017-01-13] MEDS ORDERED: SUCCINYLCHOLINE CHLORIDE 20 MG/ML 10 ML VIAL IV ONE (08:59)
[2017-01-13] MEDS ORDERED: DOXYCYCLINE IV 100 MG in DEXTROSE 5% 100ML 100 ML IV SCH ×2 (09:00→21:00)
--- NOTE | 2017-01-13 09:33 | [facility] Post Operative Brief Note ---
Immediate Operative Summary Operative Date January 13, 2017. Pre-Operative Diagnosis Left Thigh Abcess Post-Operative Diagnosis same as preop Procedure(s) Performed Incision and Debridement Left Thigh Abcess Surgeon Dr. Martin Smith Box Maker Surgeon(s) none Estimated Blood Loss 20mL Findings significant fat necrosis associated with deep abscess- not to muscle 8x4x3 cm wound- packed open Specimens Microbiology: 1. Left thigh abscess for gram stain, routine culture and sensitivity, anaerobic and aerobic. Anesthesia gen Complication(s) None Disposition Recovery Room / PACU
[2017-01-13] MEDS ORDERED: LACTATED RINGER'S 1000ML 1,000 ML IV SCH (09:45)
[2017-01-13] MEDS ORDERED: PROMETHAZINE HCL INJ 25 MG in SODIUM CHLORIDE 0.9% 50ML 50 ML IV PRN (09:45)
[2017-01-13] MEDS ORDERED: MoRPHine SULFATE 2 MG/ML CARP IV PRN (09:45)
[2017-01-13] MEDS ORDERED: IBUPROFEN 600 MG TAB PO PRN (09:45)
[2017-01-13] MEDS ORDERED: MoRPHine SULFATE 4 MG/ML 1 ML CARP\\VIAL IV PRN (09:45)
--- NOTE | 2017-01-13 09:48 | OPERATIVE REPORT ---
DATE OF OPERATION: 01/13/2017 NAME OF OPERATION: Incision and debridement of left thigh abscess. Final wound was 8 x 4 x 3 cm deep. STAFF SURGEON: Dr. Smith. ANESTHESIA: General. PROCEDURE: The patient was brought in the operating room and placed on the operating table in the supine position. His left leg was then flexed and secured. The wound was posterolateral in the left upper thigh. The leg was prepped and draped in usual fashion. Marcaine 0.5% plain was used to anesthetize tissue at the end of the case. I initially opened the wound transversely encountering a deep cavity and then I was able to identify a significant undermining of fat necrosis. The skin was dissected free. The necrotic fat was debrided back to viable tissue. It was not quite down to the fascia or muscle. I did have to debride some additional skin because of the undermining and the skin ischemia. At the end I was back to viable tissue. The wound was 8 cm long, 4 cm wide and 3 cm deep. It was then irrigated with antibiotic solution and packed with Betadine gauze and then a bulky dressing applied. The plan was to apply a wound VAC later today. I attest to the content of the Intraoperative Record and any orders documented therein. Any exceptio ns are noted below.
--- NOTE | 2017-01-13 10:08 | Anesthesiology Progress Note ---
Anesthesia Post Op Note Date & Time January 13, 2017 at 10:08 Vital Signs Pain Intensity: 0.0 Vital Signs Past 12 Hours Date Time Temp Pulse Resp B/P Pulse Ox O2 Delivery O2 Flow Rate FiO2 01/13/17 09:55 69 16 120/80 98 Nasal Cannula 2 01/13/17 09:45 72 16 126/73 98 Nasal Cannula 2 01/13/17 09:35 71 16 120/65 94 Mask 10 01/13/17 09:26 36.6 68 16 128/77 99 Mask 10 01/13/17 07:11 36.6 80 20 161/99 94 Room Air 01/13/17 00:00 Room Air 01/12/17 23:18 36.8 65 20 139/70 96 Room Air Notes Mental Status: alert / awake / arousable, participated in evaluation Pt Amnestic to Procedure: Yes Nausea / Vomiting: adequately controlled Pain: adequately controlled Airway Patency, RR, SpO2: stable & adequate BP & HR: stable & adequate Hydration State: stable & adequate Anesthetic Complications: no major complications apparent
[2017-01-13] MEDS ORDERED: NURSING VERBAL MED ORDER ONE (11:00)
[2017-01-13] MEDS: VANCOMYCIN INJ 1,750 MG in SODIUM CHLORIDE 0.9% 500ML 500 ML IV SCH ×2 (11:02→20:06)
[2017-01-13] MEDS ORDERED: LACTOBACILLUS ACIDOPHILUS (FLORANEX) TAB PO ONE (12:55)
[2017-01-13] MEDS ORDERED: DOCUSATE SODIUM/SENNA 50/8.6MG TAB PO SCH (13:00)
--- NOTE | 2017-01-13 13:26 | Hospitalist Progress Note ---
Hospitalist Progress Note Date of Service January 13, 2017. Subjective Pt evaluation today including: conversation w/ patient, conversation w/ family Pt went to OR this AM for debridement and sounds like as per op report he had some extensive fat necrosis which was debrided. CUltures taken and Gram stain showing GPCs in all of them. Afebrile, pain controlled. Having some loose stools now 2-3 times yesterday and today. No abd pain Constitutional: No fever ENT: No problem reported (no PERDOMO) Respiratory: No shortness of breath Cardiovascular: No chest pain Abdomen: + diarrhea, No pain All Other Systems: Reviewed and Negative Objective Vital Signs Date Time Temp Pulse Resp B/P Pulse Ox O2 Delivery O2 Flow Rate FiO2 01/13/17 12:12 36.3 65 17 152/78 95 01/13/17 11:15 36.7 76 17 132/78 92 Room Air 01/13/17 10:39 36.3 70 19 123/74 94 Room Air 01/13/17 10:08 Nasal Cannula 2.0 01/13/17 10:08 Nasal Cannula 2.0 01/13/17 09:55 69 16 120/80 98 Nasal Cannula 2 01/13/17 09:45 72 16 126/73 98 Nasal Cannula 2 01/13/17 09:35 71 16 120/65 94 Mask 10 01/13/17 09:26 36.6 68 16 128/77 99 Mask 10 01/13/17 07:11 36.6 80 20 161/99 94 Room Air 01/13/17 00:00 Room Air 01/12/17 23:18 36.8 65 20 139/70 96 Room Air 01/12/17 19:47 137/76 01/12/17 16:00 Room Air 01/12/17 15:12 36.9 72 18 176/81 97 Room Air Physical Exam General Appearance: WD/WN, no apparent distress Eyes: normal inspection, sclerae normal ENT: hearing grossly normal Neck: trachea midline Respiratory/Chest: lungs clear, normal breath sounds, no respiratory distress, no accessory muscle use Cardiovascular: regular rate, rhythm, no edema, no gallop, no murmur Abdomen: normal bowel sounds, non tender, soft Extremities: no calf tenderness, + pertinent finding (left lateral thigh with dressing in plce and is c/d/i and not removed, minimal erythema now outside of dressing and is well within previously demarcated line drawn) Neurologic/Psychiatric: alert, normal mood/affect, oriented x 3 Skin: warm/dry Laboratory Results Last 24 Hours Test 01/13/17 05:00 01/13/17 05:04 White Blood Count 6.13 K/uL Red Blood Count 4.71 M/uL Hemoglobin 14.5 g/dL Hematocrit 43.0 % Mean Corpuscular Volume 91.3 fL Mean Corpuscular Hemoglobin 30.8 pg Mean Corpuscular Hemoglobin Concent 33.7 g/dl Platelet Count 187 K/uL Mean Platelet Volume 10.0 fL Neutrophils (%) (Auto) 56.2 % Lymphocytes (%) (Auto) 30.2 % Monocytes (%) (Auto) 11.3 % Eosinophils (%) (Auto) 1.8 % Basophils (%) (Auto) 0.3 % Neutrophils # (Auto) 3.45 K/uL Lymphocytes # (Auto) 1.85 K/uL Monocytes # (Auto) 0.69 K/uL Eosinophils # (Auto) 0.11 K/uL Basophils # (Auto) 0.02 K/uL RDW Standard Deviation 43.3 fL RDW Coefficient of Variation 12.8 % Immature Granulocyte % (Auto) 0.2 % Immature Granulocyte # (Auto) 0.01 K/uL Prothrombin Time 10.2 SECONDS Prothromb Time International Ratio 1.0 Sodium Level 143 mmol/L Potassium Level 4.4 mmol/L Chloride Level 108 mmol/L Carbon Dioxide Level 32 mmol/L Anion Gap 3.0 mmol/L Blood Urea Nitrogen 12 mg/dl Creatinine 1.10 mg/dl Est Creatinine Clear Calc Drug Dose 110.2 ml/min Estimated GFR () 92.2 Estimated GFR (Non- 79.5 BUN/Creatinine Ratio 11.3 Random Glucose 104 mg/dl Calcium Level 8.9 mg/dl Total Bilirubin 0.7 mg/dl Direct Bilirubin < 0.1 mg/dl Aspartate Amino Transf (AST/SGOT) 19 U/L Alanine Aminotransferase (ALT/SGPT) 50 U/L Alkaline Phosphatase 100 U/L Total Protein 7.0 gm/dl Albumin 3.2 gm/dl Assessment and Plan 46 y/o M who was admitted on 01/11 with LLE cellulitis and abscess with necrotic central tissue. Initially suspected Lyme rash but now with necrosis and large abscess, Lyme not likely. Lyme titer negative on initial labs. requesting I keep the doxycycline going until seen by ID to see if they agree. LLE Cellulitis/Abscess with necrosis-could be spider bite as he was in [facility] in [place] just before started, with necrotic tissue.Surgery thought was worsening this AM and took him for further debridement and drainage. Had large pocket and fat necrosis in OR. Discussed case with Gen Surgery today. - Appreciate Gen Surgery management with I&D and then debridement of necrotic tissue -Wound vac to be placed-will need WOund Consult and outpatient Wound Clinic f/u -Lyme seems less likely but will keep doxycyline going to cover for this. Surgery requesting to keep Vanco going also to cover for MRSA but will also have MRSA coverage with doxy -Surgery was concerned and broadened coverage back again from Rocephin back to Zosyn today -continue Vanco, Doxy, and Zosyn. Received clinda for antitoxin effect just for one dose in ER--> consider restarting but will discuss with ID -Appreciate ID consult and any further recommendations -start probiotics, check C. diff for loose stools DVT Prophylaxis: Ambulation; VENUS/SCDs Code Status: FULL RESUSCITATION
[2017-01-13] MEDS: PIPERACILL/TAZOBAC IV 3.375 GM in DEXTROSE 5% 100ML 100 ML IV SCH ×2 (15:50→23:24)
--- NOTE | 2017-01-13 15:59 | Pharmacy Progress Note ---
Pharmacy Abx Initial Consult Date of Service January 13, 2017. Pharmacy Dosing Scope Date of Consult: 01/13/17 Consultation requested by: Dr. Smith Pharmacy is consulted to re-initiate Vancomycin IV/PO dosing therapy, order appropriate labs and adjust drug dose/frequency. Vancomycin was discontinued on 01/12 after dose at 0800 and now re-started post debridement of abscess due to necrotic tissue. Subjective The patient is a 46 year old male admitted on January 11, 2017 at 15:50. Objective Height (Feet): 6 Height (Inches): 1.00 Weight (Kilograms): 114.900 Vital Signs (Past 12Hrs) Vital Signs Past 12 Hours Date Time Temp Pulse Resp B/P Pulse Ox O2 Delivery O2 Flow Rate FiO2 01/13/17 15:46 36.8 72 18 154/80 95 Room Air 01/13/17 13:09 36.5 16 159/90 96 01/13/17 12:12 36.3 65 17 152/78 95 01/13/17 11:15 36.7 76 17 132/78 92 Room Air 01/13/17 10:39 36.3 70 19 123/74 94 Room Air 01/13/17 10:08 Nasal Cannula 2.0 01/13/17 10:08 Nasal Cannula 2.0 01/13/17 09:55 69 16 120/80 98 Nasal Cannula 2 01/13/17 09:45 72 16 126/73 98 Nasal Cannula 2 01/13/17 09:35 71 16 120/65 94 Mask 10 01/13/17 09:26 36.6 68 16 128/77 99 Mask 10 01/13/17 07:11 36.6 80 20 161/99 94 Room Air Lab Results (24Hrs) Test 01/13/17 05:00 01/13/17 05:04 White Blood Count 6.13 K/uL (4.8-10.8) Red Blood Count 4.71 M/uL (4.7-6.1) Hemoglobin 14.5 g/dL (14.0-18.0) Hematocrit 43.0 % (42-52) Mean Corpuscular Volume 91.3 fL (80-100) Mean Corpuscular Hemoglobin 30.8 pg (25-34) Mean Corpuscular Hemoglobin Concent 33.7 g/dl (32-36) Platelet Count 187 K/uL (130-400) Mean Platelet Volume 10.0 fL (7.4-10.4) Neutrophils (%) (Auto) 56.2 % Lymphocytes (%) (Auto) 30.2 % Monocytes (%) (Auto) 11.3 % Eosinophils (%) (Auto) 1.8 % Basophils (%) (Auto) 0.3 % Neutrophils # (Auto) 3.45 K/uL (1.4-6.5) Lymphocytes # (Auto) 1.85 K/uL (1.2-3.4) Monocytes # (Auto) 0.69 K/uL (0.11-0.59) Eosinophils # (Auto) 0.11 K/uL (0-0.5) Basophils # (Auto) 0.02 K/uL (0-0.2) RDW Standard Deviation 43.3 fL (36.4-46.3) RDW Coefficient of Variation 12.8 % (11.5-14.5) Immature Granulocyte % (Auto) 0.2 % Immature Granulocyte # (Auto) 0.01 K/uL (0.00-0.02) Prothrombin Time 10.2 SECONDS (9.0-12.0) Prothromb Time International Ratio 1.0 (0.9-1.1) Sodium Level 143 mmol/L (136-145) Potassium Level 4.4 mmol/L (3.5-5.1) Chloride Level 108 mmol/L (98-107) Carbon Dioxide Level 32 mmol/L (21-32) Anion Gap 3.0 mmol/L (3-11) Blood Urea Nitrogen 12 mg/dl (7-18) Creatinine 1.10 mg/dl (0.60-1.40) Est Creatinine Clear Calc Drug Dose 110.2 ml/min Estimated GFR () 92.2 Estimated GFR (Non- 79.5 BUN/Creatinine Ratio 11.3 (10-20) Random Glucose 104 mg/dl (70-99) Calcium Level 8.9 mg/dl (8.5-10.1) Total Bilirubin 0.7 mg/dl (0.2-1) Direct Bilirubin < 0.1 mg/dl (0-0.2) Aspartate Amino Transf (AST/SGOT) 19 U/L (15-37) Alanine Aminotransferase (ALT/SGPT) 50 U/L (12-78) Alkaline Phosphatase 100 U/L (45-117) Total Protein 7.0 gm/dl (6.4-8.2) Albumin 3.2 gm/dl (3.4-5.0) Micro Results Date/Time Source Procedure Growth Status 01/11/17 13:30 Blood Blood Culture - Preliminary NO GROWTH TO DATE. Resulted 01/11/17 13:20 Blood Blood Culture - Preliminary NO GROWTH TO DATE. Resulted 01/13/17 08:55 Tissue Thigh , Left Gram Stain - Final Resulted 01/13/17 08:55 Tissue Thigh , Left Bacterial Culture Pending Resulted 01/13/17 08:50 Abscess Thigh , Left Gram Stain - Final Resulted 01/13/17 08:50 Abscess Thigh , Left Bacterial Culture Pending Resulted 01/12/17 13:54 Tissue Thigh , Left Gram Stain - Final Resulted 01/12/17 13:54 Bacterial Culture - Preliminary Staphylococcus Aureus Resulted Assessment & Plan Assessment 46 year old male with LLE cellulitis s/p insect bite a few days ago. Pt noticed area worsening, started bactrim as an outpatient but did not improve and remained febrile. Vancomycin was initiated on 01/11 but then d/c on 01/12 and re- started. Plan Vancomycin and Zosyn for treatment of wound post debridement. Vancomycin IV * Loading dose: 2300 mg (20 mg/kg) given on 01/11 at 1430. * Maintenance dose: 1750 mg IV (15 mg/kg) every 10 hours started at 2200 on then d/c on 01/12 AM. Currently re-started and dose given at 1100 AM today. * Goal trough level for Cellulitis: 13 to 17 mcg/mL * Trough Vancomycin level ordered for 01/14 before dose at 1600. Pharmacy will continue to follow and will adjust dose/frequency as necessary. Thank you.
--- NOTE | 2017-01-13 16:52 | Medical Consult ---
Consultation Date of Consultation: January 13, 2017. Attending Physician: Catia Shah MD Reason for Consultation: Left thigh abscess History of Present Illness 46-year-old male in prior good health was well until last Sunday, when while in [place] noted what he thought was a pimple on his posterior left thigh. This became surrounded with erythema, he tried to drain it himself without success. Area became progressively more swollen and erythematous and painful, and eventually patient came to the emergency department and was admitted for soft tissue infection. He was started on broad-spectrum antibiotics as well as doxycycline for possibility of Lyme disease, but then developed obvious fluctuance in the area, leading to drainage at the bedside yesterday. Patient then noted to have worsening infection, and now his undergone operative drainage of large amount of purulent material, and likely patient will require wound VAC placement. Cultures now growing Staph aureus. Patient has had low-grade fever and chills. Feeling much better since admission and operative drainage. Currently afebrile and hemodynamically stable. No antibiotic allergies. Past Medical/Surgical History Medical Problems: (1) Cellulitis no significant past medical or past surgical history Family History Noncontributory Social History Smoking Status: Never Smoker Alcohol Use: occasionally (once a week or less) Drug Use: none Allergies Coded Allergies: No Known Allergies (Unverified , 06/01/04) Current Inpatient Medications Current Inpatient Medications Medications (Trade) Dose Ordered Sig/Rosario Route Start Time Stop Time Status Last Admin Dose Admin Acetaminophen (Tylenol Tab) 650 mg Q4H PRN PO 01/11/17 15:45 02/10/17 15:44 01/11/17 22:08 650 MG Magnesium Hydroxide (Milk Of Magnesia Susp) 30 ml Q6H PRN PO 01/11/17 15:45 02/10/17 15:44 Ondansetron HCl (Zofran Inj) 4 mg Q6H PRN IV 01/11/17 15:45 02/10/17 15:44 Acetaminophen/ Hydrocodone Bitart ([place] 5/325 Tab) 1 tab Q4 PRN PO 01/12/17 14:00 01/26/17 13:59 Acetaminophen/ Hydrocodone Bitart ([place] 5/325 Tab) 2 tab Q4 PRN PO 01/12/17 14:00 01/26/17 13:59 Hydralazine HCl (HydrALAZINE INJ) 10 mg Q8H PRN IV. 01/12/17 19:30 02/11/17 19:29 Enoxaparin Sodium 40 mg 40 mg DAILY SQ 01/13/17 08:00 02/12/17 07:59 Future hold Piperacillin Sod/ Tazobactam Sod/ Dextrose (Zosyn Iv/D5 100ml) 115 ml @ 28.75 mls/ hr Q8H IV 01/13/17 08:00 01/23/17 07:59 Future hold 01/13/17 15:50 28.75 MLS/HR Piperacillin Sod/ Tazobactam Sod (Consult) 1 ea UD PRN N/A 01/13/17 07:45 02/12/17 07:44 Vancomycin HCl 1 ea 1 ea UD PRN N/A 01/13/17 07:45 02/12/17 07:44 Vancomycin HCl/ Sodium Chloride (Vancomycin Inj/ Nss 500ml) 535 ml @ 200 mls/hr Q10H IV 01/13/17 10:00 01/23/17 09:59 01/13/17 11:02 200 MLS/HR Morphine Sulfate (MoRPHine SULFATE INJ) 2 mg Q4H PRN IV 01/13/17 09:45 01/27/17 09:44 Morphine Sulfate (MoRPHine SULFATE INJ) 4 mg Q4H PRN IV 01/13/17 09:45 01/27/17 09:44 Senna/Docusate Sodium (Senokot S Tab) 1 tab BID PO 01/13/17 13:00 02/12/17 12:59 Magnesium Hydroxide 30 ml 30 ml BID PO 01/13/17 20:00 02/12/17 19:59 Promethazine HCl/ Sodium Chloride (Phenergan Inj/ Nss 50ml) 51 ml @ 204 mls/hr Q6H PRN IV 01/13/17 09:45 02/12/17 09:44 Ibuprofen (Motrin Tab) 600 mg Q6 PRN PO 01/13/17 09:45 02/12/17 09:44 Lactobacillus Acidophilus 4 tab 4 tab TIDM PO 01/13/17 17:45 02/12/17 17:44 Doxycycline Hyclate/Dextrose (Vibramycin IV/ D5 100ml) 110 ml @ 50 mls/hr Q12 IV 01/13/17 21:00 01/23/17 20:59 Review of Systems all systems were reviewed and are negative except as per HPI Physical Exam Date Time Temp Pulse Resp B/P Pulse Ox O2 Delivery O2 Flow Rate FiO2 01/13/17 15:46 36.8 72 18 154/80 95 Room Air 01/13/17 13:09 36.5 16 159/90 96 01/13/17 12:12 36.3 65 17 152/78 95 01/13/17 11:15 36.7 76 17 132/78 92 Room Air 01/13/17 10:39 36.3 70 19 123/74 94 Room Air 01/13/17 10:08 Nasal Cannula 2.0 01/13/17 10:08 Nasal Cannula 2.0 01/13/17 09:55 69 16 120/80 98 Nasal Cannula 2 01/13/17 09:45 72 16 126/73 98 Nasal Cannula 2 01/13/17 09:35 71 16 120/65 94 Mask 10 01/13/17 09:26 36.6 68 16 128/77 99 Mask 10 01/13/17 07:11 36.6 80 20 161/99 94 Room Air 01/13/17 00:00 Room Air 01/12/17 23:18 36.8 65 20 139/70 96 Room Air 01/12/17 19:47 137/76 General Appearance: WD/WN, no apparent distress Head: normocephalic, atraumatic Eyes: normal inspection, EOMI, sclerae normal ENT: normal ENT inspection, hearing grossly normal, pharynx normal Neck: supple, no adenopathy, thyroid normal, trachea midline Respiratory/Chest: chest non-tender, lungs clear, normal breath sounds, no respiratory distress Cardiovascular: regular rate, rhythm, no gallop, no murmur Abdomen/GI: normal bowel sounds, non tender, soft, no organomegaly Back: normal inspection, no CVA tenderness Extremities/Musculoskelatal: no calf tenderness, normal capillary refill Neurologic/Psych: alert, normal reflexes Skin: normal color, no rash, + pertinent finding ( surgical dressing intact left posterior thigh) Laboratory Results Date/Time Source Procedure Growth Status 01/13/17 08:55 Tissue Thigh , Left Gram Stain - Final Resulted 01/13/17 08:55 Tissue Thigh , Left Bacterial Culture Pending Resulted 01/13/17 08:50 Abscess Thigh , Left Gram Stain - Final Resulted 01/13/17 08:50 Abscess Thigh , Left Bacterial Culture Pending Resulted Last 24 Hours Test 01/13/17 05:00 01/13/17 05:04 White Blood Count 6.13 K/uL Red Blood Count 4.71 M/uL Hemoglobin 14.5 g/dL Hematocrit 43.0 % Mean Corpuscular Volume 91.3 fL Mean Corpuscular Hemoglobin 30.8 pg Mean Corpuscular Hemoglobin Concent 33.7 g/dl Platelet Count 187 K/uL Mean Platelet Volume 10.0 fL Neutrophils (%) (Auto) 56.2 % Lymphocytes (%) (Auto) 30.2 % Monocytes (%) (Auto) 11.3 % Eosinophils (%) (Auto) 1.8 % Basophils (%) (Auto) 0.3 % Neutrophils # (Auto) 3.45 K/uL Lymphocytes # (Auto) 1.85 K/uL Monocytes # (Auto) 0.69 K/uL Eosinophils # (Auto) 0.11 K/uL Basophils # (Auto) 0.02 K/uL RDW Standard Deviation 43.3 fL RDW Coefficient of Variation 12.8 % Immature Granulocyte % (Auto) 0.2 % Immature Granulocyte # (Auto) 0.01 K/uL Prothrombin Time 10.2 SECONDS Prothromb Time International Ratio 1.0 Sodium Level 143 mmol/L Potassium Level 4.4 mmol/L Chloride Level 108 mmol/L Carbon Dioxide Level 32 mmol/L Anion Gap 3.0 mmol/L Blood Urea Nitrogen 12 mg/dl Creatinine 1.10 mg/dl Est Creatinine Clear Calc Drug Dose 110.2 ml/min Estimated GFR () 92.2 Estimated GFR (Non- 79.5 BUN/Creatinine Ratio 11.3 Random Glucose 104 mg/dl Calcium Level 8.9 mg/dl Total Bilirubin 0.7 mg/dl Direct Bilirubin < 0.1 mg/dl Aspartate Amino Transf (AST/SGOT) 19 U/L Alanine Aminotransferase (ALT/SGPT) 50 U/L Alkaline Phosphatase 100 U/L Total Protein 7.0 gm/dl Albumin 3.2 gm/dl [~ rep ct add3]] LEFT THIGH ULTRASOUND CLINICAL HISTORY: Left thigh induration with darkened center. COMPARISON STUDY: No previous studies for comparison. FINDINGS: Sonography of the left thigh was performed and demonstrated no fluid collection to suggest an abscess. There was subcutaneous edema. Subcutaneous gas is difficult to assess for by sonography. IMPRESSION: No left thigh abscess identified by sonography. Left thigh subcutaneous edema which may reflect cellulitis. Electronically signed by: Ronnie Land M.D. 01/11/2017 2:12 PM Dictated Date/Time: 01/11/2017 2:10 PM The status of this report is Signed. Draft = Not yet reviewed or approved by Radiologist. Signed = Reviewed and approved Assessment & Plan left thigh abscess and soft tissue infection in otherwise healthy 46-year-old male, now growing Staph aureus, sensitivities pending. Until final culture results and sensitivities are available, would continue patient on combination of Zosyn and vancomycin. I will adjust these tomorrow once final results are available. Hopefully can be transitioned to oral antibiotics in the near future. Will follow.
[2017-01-13] MEDS: LACTOBACILLUS ACIDOPHILUS (FLORANEX) TAB PO SCH (18:01)
[2017-01-13] MEDS ORDERED: MAGNESIUM HYDROXIDE SUSP 30 ML UDC PO SCH (20:00)
[2017-01-14 02:55] VITALS: BP 154/72; PULSE 66; TEMP 36.7; O2SAT 97
[2017-01-14] MEDS: VANCOMYCIN INJ 1,750 MG in SODIUM CHLORIDE 0.9% 500ML 500 ML IV SCH ×2 (05:40→15:55)
[2017-01-14 06:07] LABS: BASO % 0.1 %; BASO ABS # 0.01 K/uL (0-0.2); COMPLETE YES; EOS % 0.3 %; HEMATOCRIT 41.4 % (42-52); IG% 0.3 %; LYMPH % 23.5 %; LYMPH ABS # 1.84 K/uL (1.2-3.4); MEAN CELL VOLUME 89.6 fL (80-100); MEAN CORPUSCULAR HEMOGLOBIN 29.4 pg (25-34); MEAN CORPUSCULAR HGB CONC 32.9 g/dl (32-36); MEAN PLATELET VOLUME 9.7 fL (7.4-10.4); MONO % 7.8 %; PLATELET COUNT 202 K/uL (130-400); RED BLOOD COUNT 4.62 M/uL (4.7-6.1); WHITE BLOOD COUNT 7.83 K/uL (4.8-10.8)
--- NOTE | 2017-01-14 06:21 | Surgery Progress Note ---
Surgery Progress Note Date of Service January 14, 2017. Subjective no pain in Lt leg- less loose bm c diff neg, cult gram + cocci Objective Vital Signs: Date Time Temp Pulse Resp B/P Pulse Ox O2 Delivery O2 Flow Rate FiO2 01/14/17 02:55 36.7 66 16 154/72 97 Room Air 01/13/17 23:30 Room Air 01/13/17 23:20 36.6 67 18 129/69 96 Room Air 01/13/17 15:46 36.8 72 18 154/80 95 Room Air 01/13/17 15:45 Room Air 01/13/17 13:09 36.5 16 159/90 96 01/13/17 12:12 36.3 65 17 152/78 95 01/13/17 11:15 36.7 76 17 132/78 92 Room Air 01/13/17 10:39 36.3 70 19 123/74 94 Room Air 01/13/17 10:08 Nasal Cannula 2.0 01/13/17 10:08 Nasal Cannula 2.0 01/13/17 09:55 69 16 120/80 98 Nasal Cannula 2 01/13/17 09:45 72 16 126/73 98 Nasal Cannula 2 01/13/17 09:35 71 16 120/65 94 Mask 10 01/13/17 09:26 36.6 68 16 128/77 99 Mask 10 01/13/17 07:11 36.6 80 20 161/99 94 Room Air General Appearance: no apparent distress Respiratory/Chest: no respiratory distress Extremities: non-tender (much less erythema) Laboratory Results: Results Past 24 Hours Test 01/14/17 05:26 Range/Units White Blood Count 7.83 4.8-10.8 K/uL Red Blood Count 4.62 4.7-6.1 M/uL Hemoglobin 13.6 14.0-18.0 g/dL Hematocrit 41.4 42-52 % Mean Corpuscular Volume 89.6 80-100 fL Mean Corpuscular Hemoglobin 29.4 25-34 pg Mean Corpuscular Hemoglobin Concent 32.9 32-36 g/dl Platelet Count 202 130-400 K/uL Mean Platelet Volume 9.7 7.4-10.4 fL Neutrophils (%) (Auto) 68.0 % Lymphocytes (%) (Auto) 23.5 % Monocytes (%) (Auto) 7.8 % Eosinophils (%) (Auto) 0.3 % Basophils (%) (Auto) 0.1 % Neutrophils # (Auto) 5.33 1.4-6.5 K/uL Lymphocytes # (Auto) 1.84 1.2-3.4 K/uL Monocytes # (Auto) 0.61 0.11-0.59 K/uL Eosinophils # (Auto) 0.02 0-0.5 K/uL Basophils # (Auto) 0.01 0-0.2 K/uL RDW Standard Deviation 40.2 36.4-46.3 fL RDW Coefficient of Variation 12.4 11.5-14.5 % Immature Granulocyte % (Auto) 0.3 % Immature Granulocyte # (Auto) 0.02 0.00-0.02 K/uL Microbiology Results 01/13/17 C.difficile Toxin B Gene (PCR) - Final, Complete No C. difficile toxin B gene detected 01/13/17 Gram Stain - Final, Resulted 01/13/17 Bacterial Culture, Resulted Pending 01/13/17 Gram Stain - Final, Resulted 01/13/17 Bacterial Culture, Resulted Pending Assessment & Plan 01/14/17-s/p incision/ debridement of Lt leg in OR yesterday- significant fat necrosis- [id number] defect- for wound vac. Lt thigh cellulitis much improved since OR- almost none. Check sens and adjust atbx. 01/13/17- I do not think it is improved enough- will need OR incision/ debridement will likely need a wound vac and need to change antibiotics- cult pending Back on Vanco and switch to Zosyn. ID consult 01/13/17- I do not think it is improved enough- will need OR incision/ debridement will likely need a wound vac and need to change antibiotics- cult pending Back on Vanco and switch to Zosyn. ID consult
[2017-01-14 06:49] LABS: BUN/CREATININE RATIO 13.8 (10-20); CALCIUM 8.8 mg/dl (8.5-10.1); POTASSIUM 4.1 mmol/L (3.5-5.1)
[2017-01-14] MEDS: PIPERACILL/TAZOBAC IV 3.375 GM in DEXTROSE 5% 100ML 100 ML IV SCH (07:33)
[2017-01-14 07:45] VITALS: BP 143/87; PULSE 60; TEMP 36.6; O2SAT 98
[2017-01-14] MEDS: LACTOBACILLUS ACIDOPHILUS (FLORANEX) TAB PO SCH ×3 (08:41→18:06)
[2017-01-14] MEDS: ENOXAPARIN 40 MG/0.4 ML SYR SQ SCH (09:00)
[2017-01-14] MEDS ORDERED: HYDR-5688 PO (14:32)
--- NOTE | 2017-01-14 14:37 | Discharge Instructions ---
Discharge Instructions Date of Service January 14, 2017. Admission Reason for Admission: Cellulitis Discharge Discharge Diagnosis / Problem: Lt leg infection Discharge Goals Goal(s): Decrease discomfort, Improve function, Improve disease control Activity Recommendations Activity Limitations: as noted below Lifting Limitations: no more than 25 pounds Exercise/Sports Limitations: until after follow-up appointment May Resume Sexual Activity: when tolerated Shower/Bathe: keep incision dry (try to keep vac area dry if possible) Driving or Machine Use: SPECIAL CARE INSTRUCTIONS: * Cover incisions and change daily for comfort/drainage.- if wound vac comes off- apply saline wet gauze and cover change twice daily * May use ibuprofen for pain as tolerated. * Expect some swelling and bruising. Call your doctor if: * Temperature above 101 degrees * Pain not relieved by pain medicine ordered * There is increased drainage or redness from any incision * You have any unanswered questions or concerns [phone]. FOLLOW UP VISIT: If not already scheduled, please call the office for a follow-up visit. nurses will arrange wound clinic followup and call you on Sunday OFFICE PHONE NUMBER: Dr. Smith Office . Current Hospital Diet Patient's current hospital diet: Regular Diet Discharge Diet Recommended Diet: Regular Diet Procedures Procedures Performed: Incision and Debridement Left Thigh Abcess Pending Studies Studies pending at discharge: no Work Instructions Return To Work: after follow-up (will not be able to work for at least 2 weeks - bring necessary paperwork to Dr Smith's office) Medical Emergencies . Who to Call and When: Medical Emergencies: If at any time you feel your situation is an emergency, please call 911 immediately. . Non-Emergent Contact Non-Emergency issues call your: Primary Care Provider, Surgeon . "Provider Documentation" section prepared by Martin Smith. . VTE Core Measure Inpt VTE Proph given/why not?: Enoxaparin (Lovenox)SQ, SCD's
[2017-01-14] MEDS ORDERED: DOXY-300 PO (14:40)
[2017-01-14] MEDS ORDERED: SULF800T23 PO (15:10)
[2017-01-14] MEDS ORDERED: VANCOMYCIN TROUGH SCH (15:30)
[2017-01-14 16:00] VITALS: BP 131/80; PULSE 63; TEMP 36.6; O2SAT 97
--- NOTE | 2017-01-14 16:40 | Pharmacy Progress Note ---
Pharmacy Abx Dose Progress Nt Date of Service January 14, 2017. Pharmacy Dosing Scope The patient is currently receiving the following antimicrobial agents per Pharmacy consult: Vancomycin 1750 mg IV every 10 hours Objective Height (Feet): 6 Height (Inches): 1.00 Weight (Kilograms): 114.900 Vital Signs (Past 12Hrs) Vital Signs Past 12 Hours Date Time Temp Pulse Resp B/P Pulse Ox O2 Delivery O2 Flow Rate FiO2 01/14/17 16:00 36.6 63 18 131/80 97 Room Air 01/14/17 07:45 36.6 60 16 143/87 98 Room Air 01/14/17 07:25 Room Air Lab Results (24Hrs) Test 01/14/17 05:26 01/14/17 15:36 White Blood Count 7.83 K/uL (4.8-10.8) Red Blood Count 4.62 M/uL (4.7-6.1) Hemoglobin 13.6 g/dL (14.0-18.0) Hematocrit 41.4 % (42-52) Mean Corpuscular Volume 89.6 fL (80-100) Mean Corpuscular Hemoglobin 29.4 pg (25-34) Mean Corpuscular Hemoglobin Concent 32.9 g/dl (32-36) Platelet Count 202 K/uL (130-400) Mean Platelet Volume 9.7 fL (7.4-10.4) Neutrophils (%) (Auto) 68.0 % Lymphocytes (%) (Auto) 23.5 % Monocytes (%) (Auto) 7.8 % Eosinophils (%) (Auto) 0.3 % Basophils (%) (Auto) 0.1 % Neutrophils # (Auto) 5.33 K/uL (1.4-6.5) Lymphocytes # (Auto) 1.84 K/uL (1.2-3.4) Monocytes # (Auto) 0.61 K/uL (0.11-0.59) Eosinophils # (Auto) 0.02 K/uL (0-0.5) Basophils # (Auto) 0.01 K/uL (0-0.2) RDW Standard Deviation 40.2 fL (36.4-46.3) RDW Coefficient of Variation 12.4 % (11.5-14.5) Immature Granulocyte % (Auto) 0.3 % Immature Granulocyte # (Auto) 0.02 K/uL (0.00-0.02) Sodium Level 144 mmol/L (136-145) Potassium Level 4.1 mmol/L (3.5-5.1) Chloride Level 108 mmol/L (98-107) Carbon Dioxide Level 28 mmol/L (21-32) Anion Gap 8.0 mmol/L (3-11) Blood Urea Nitrogen 14 mg/dl (7-18) Creatinine 1.00 mg/dl (0.60-1.40) Est Creatinine Clear Calc Drug Dose 121.3 ml/min Estimated GFR () 103.4 Estimated GFR (Non- 89.2 BUN/Creatinine Ratio 13.8 (10-20) Random Glucose 119 mg/dl (70-99) Calcium Level 8.8 mg/dl (8.5-10.1) Vancomycin Level Trough 13.0 mcg/ml (SEE COMMENT) Serology Item Value Date Time Vancomycin Level Trough 13.0 mcg/ml 01/14/17 1536 Micro Results Date/Time Source Procedure Growth Status 01/11/17 13:30 Blood Blood Culture - Preliminary NO GROWTH TO DATE. Resulted 01/11/17 13:20 Blood Blood Culture - Preliminary NO GROWTH TO DATE. Resulted 01/13/17 19:20 Stool C.difficile Toxin B Gene (PCR) - Final No C. difficile toxin B gene detected Complete 01/13/17 08:55 Tissue Thigh , Left Gram Stain - Final Resulted 01/13/17 08:55 Bacterial Culture - Preliminary Staphylococcus Aureus Resulted 01/13/17 08:50 Abscess Thigh , Left Gram Stain - Final Resulted 01/13/17 08:50 Bacterial Culture - Preliminary Staphylococcus Aureus Resulted 01/12/17 13:54 Tissue Thigh , Left Gram Stain - Final Resulted 01/12/17 13:54 Bacterial Culture - Preliminary Staphylococcus Aureus Resulted Assessment & Plan Assessment 46 year old male receiving Vancomycin for treatment of Cellulitis/ abscess s/p debridement. Day # 4 of antimicrobial therapy Plan Vancomycin IV * Trough level of 13 mcg/mL is therapeutic. * Continue dose of Vancomycin 1750 mg IV every 10 hours. * Goal trough level for Cellulitis: 13 to 17 mcg/mL * Of note, patient has been ordered Bactrim DS, 1 tab, BID to start on 529 AM. * Wound cultures show staph sensitive to Bactrim. Hence Vancomycin should be discontinued tomorrow. * If Vanco continues beyond tomorrow, then we will order a trough level to confirm adequate therapy. Pharmacy will continue to follow and will adjust dose/frequency as necessary. Thank you.
--- NOTE | 2017-01-14 18:02 | Progress Note ---
Subjective Date of Service: January 14, 2017. Subjective Pt evaluation today including: conversation w/ patient, physical exam, chart review, lab review, conversation w/ school plant consultant (social work, general surgery), review of inpatient medication list Pain: left thigh - mild (improved from admission) PO Intake: normal Voiding: no voiding problems no issues overnight he feels much better minimal left thigh pain he denies sob diarrhea remains but this, too, is better he c/o mild upper abdominal discomfort "like I had done a bunch of abdominal crunches" denies chest pain denies that the pain is worse with eating food denies nausea pain is not worse with movement Review of Systems Constitutional: No chills, No fever Respiratory: No shortness of breath Cardiac: No chest pain Abdomen: + diarrhea, + see HPI Objective Vital Signs Date Time Temp Pulse Resp B/P Pulse Ox O2 Delivery O2 Flow Rate FiO2 01/14/17 16:00 36.6 63 18 131/80 97 Room Air 01/14/17 15:45 Room Air 01/14/17 07:45 36.6 60 16 143/87 98 Room Air 01/14/17 07:25 Room Air 01/14/17 02:55 36.7 66 16 154/72 97 Room Air 01/13/17 23:30 Room Air 01/13/17 23:20 36.6 67 18 129/69 96 Room Air Physical Exam General Appearance: no apparent distress ENT: pharynx normal Neck: no JVD Respiratory/Chest: lungs clear, no respiratory distress, no accessory muscle use Cardiovascular: regular rate, rhythm, no gallop, no murmur Abdomen: normal bowel sounds, non tender, soft, no organomegaly Extremities: no pedal edema Skin: + pertinent finding (left posterior thigh - optifoam in place over abscess site; this was taken down; there is copious packing material in place; there is scant erythema surrounding the abscess cavity; minimal swelling of the thigh ) Laboratory Results Last 24 Hours Test 01/14/17 05:26 01/14/17 15:36 White Blood Count 7.83 K/uL Red Blood Count 4.62 M/uL Hemoglobin 13.6 g/dL Hematocrit 41.4 % Mean Corpuscular Volume 89.6 fL Mean Corpuscular Hemoglobin 29.4 pg Mean Corpuscular Hemoglobin Concent 32.9 g/dl Platelet Count 202 K/uL Mean Platelet Volume 9.7 fL Neutrophils (%) (Auto) 68.0 % Lymphocytes (%) (Auto) 23.5 % Monocytes (%) (Auto) 7.8 % Eosinophils (%) (Auto) 0.3 % Basophils (%) (Auto) 0.1 % Neutrophils # (Auto) 5.33 K/uL Lymphocytes # (Auto) 1.84 K/uL Monocytes # (Auto) 0.61 K/uL Eosinophils # (Auto) 0.02 K/uL Basophils # (Auto) 0.01 K/uL RDW Standard Deviation 40.2 fL RDW Coefficient of Variation 12.4 % Immature Granulocyte % (Auto) 0.3 % Immature Granulocyte # (Auto) 0.02 K/uL Sodium Level 144 mmol/L Potassium Level 4.1 mmol/L Chloride Level 108 mmol/L Carbon Dioxide Level 28 mmol/L Anion Gap 8.0 mmol/L Blood Urea Nitrogen 14 mg/dl Creatinine 1.00 mg/dl Est Creatinine Clear Calc Drug Dose 121.3 ml/min Estimated GFR () 103.4 Estimated GFR (Non- 89.2 BUN/Creatinine Ratio 13.8 Random Glucose 119 mg/dl Calcium Level 8.8 mg/dl Vancomycin Level Trough 13.0 mcg/ml Assessment and Plan 46yo male with: 1. MRSA abscess left posterior thigh s/p I&D in the OR yesterday by Dr. Smith - POD #1. Stop the zosyn. Doxycycline already stopped. Continue vancomycin; defer ultimate abx selection to Dr. August but suspect we can transition to oral bactrim at discharge. Note - blood cx's neg. Pt to have wound vac placed today by wound care team. 2. DVT proph - lovenox. 3. upper abdominal discomfort - I am unclear what is causing this mild discomfort. Sounds musculoskeletal; cannot rule out GI. Follow for now. 4. elevated BP w/o Dx of HTN - I discussed this with the patient and asked him to f/u with his PCP to ensure he does not have essential HTN. 5. diarrhea - abx-associated; c. diff negative. Cont probiotics. spoke with SW who confirmed they are working on outpatient wound vac home with once wound vac has been arranged Continued [facility] stay due to: multiple IV medications needed Discharge planning: home with home health
[2017-01-15 00:10] VITALS: BP 134/77; PULSE 68; TEMP 36.6; O2SAT 96
[2017-01-15] MEDS: VANCOMYCIN INJ 1,750 MG in SODIUM CHLORIDE 0.9% 500ML 500 ML IV SCH (01:42)
--- NOTE | 2017-01-15 06:39 | Surgery Progress Note ---
Surgery Progress Note Date of Service January 15, 2017. Subjective minimal pain- wound vac in place Objective Vital Signs: Date Time Temp Pulse Resp B/P Pulse Ox O2 Delivery O2 Flow Rate FiO2 01/15/17 00:10 36.6 68 18 134/77 96 Room Air 01/14/17 23:25 Room Air 01/14/17 16:00 36.6 63 18 131/80 97 Room Air 01/14/17 15:45 Room Air 01/14/17 07:45 36.6 60 16 143/87 98 Room Air 01/14/17 07:25 Room Air General Appearance: no apparent distress Respiratory/Chest: no respiratory distress Laboratory Results: Results Past 24 Hours Test 01/14/17 15:36 Range/Units Vancomycin Level Trough 13.0 SEE COMMENT mcg/ml Assessment & Plan 01/15/17- awaiting clearance of wound vac for home by insurance co. scripts in chart- to cont on Bactrim DS, currently on IV Vanco Dr [place] covering today 01/14/17-s/p incision/ debridement of Lt leg in OR yesterday- significant fat necrosis- [id number] defect- for wound vac. Lt thigh cellulitis much improved since OR- almost none. Check sens and adjust atbx. 01/13/17- I do not think it is improved enough- will need OR incision/ debridement will likely need a wound vac and need to change antibiotics- cult pending Back on Vanco and switch to Zosyn. ID consult 01/14/17-s/p incision/ debridement of Lt leg in OR yesterday- significant fat necrosis- [id number] defect- for wound vac. Lt thigh cellulitis much improved since OR- almost none. Check sens and adjust atbx. 01/13/17- I do not think it is improved enough- will need OR incision/ debridement will likely need a wound vac and need to change antibiotics- cult pending Back on Vanco and switch to Zosyn. ID consult
[2017-01-15 07:27] VITALS: BP 145/90; PULSE 74; TEMP 36.5; O2SAT 97
[2017-01-15] MEDS ORDERED: SULFAMETHOXAZOLE/TRIMETHOPRIM DS 800/160MG TAB PO SCH (09:00)
[2017-01-15] MEDS: ENOXAPARIN 40 MG/0.4 ML SYR SQ SCH (09:00)
[2017-01-15] MEDS: LACTOBACILLUS ACIDOPHILUS (FLORANEX) TAB PO SCH ×2 (09:19→12:50)
[2017-01-15 13:37] VITALS: BP 145/90; PULSE 74; TEMP 36.5; O2SAT 97
--- NOTE | 2017-01-15 15:09 | Medical Student: [facility] ---
Med Student Progress Note Date of Service January 15, 2017. Subjective Pt evaluation today including: conversation w/ patient Pain: 0 PO Intake: good Voiding: no voiding problems Mr. Ivan Frye is a 46 yo male 2 days s/p I&D of a non-healing wound on his left lateral thigh. He first noticed the wound six days ago, and noticed it increase in size during the subsequent two days. He felt fevers and chills and came to the ED. He was admitted and general surgery did a bedside I&D three days ago, followed by an operative I&D two days ago. Yesterday a wound vac was placed on the wound, and today it is draining a scant amount of serosanguinous fluid. He has not had a fever or chills in three days. He denies constipation, diarrhea, nausea, vomiting, or any other symptom. He is unsure of what could have caused the wound, but states he has seen brown recluse spiders in his house. [place] also [place] significant time in [place]. He did not see a spider to confirm whether it was a spider bite or not. Review of Systems Constitutional: No problem reported Eyes: No problem reported ENT: No problem reported Respiratory: No problem reported Cardiac: No problem reported Abdomen: No problem reported Musculoskeletal: No problem reported Neurologic: No problem reported Psychiatric: No problem reported Heme: No problem reported Endo: No problem reported Skin: + new/changing skin lesions Objective Vital Signs Date Time Temp Pulse Resp B/P Pulse Ox O2 Delivery O2 Flow Rate FiO2 01/15/17 13:37 36.5 74 16 97 Room Air 01/15/17 07:35 Room Air 01/15/17 07:27 36.5 74 16 145/90 97 Room Air 01/15/17 00:10 36.6 68 18 134/77 96 Room Air 01/14/17 23:25 Room Air 01/14/17 16:00 36.6 63 18 131/80 97 Room Air 01/14/17 15:45 Room Air Physical Exam Comments: Vitals: See above. General: WD/WN, No acute distress. Looks too healthy for hospital CV: S1, S2, No MRG. RRR. Pulm: Lungs clear to auscultation in upper and lower lobes bilaterally. Abdomen: Soft, non-tender. Normal bowel sounds. Extremities: Sound size and shape of an avocado covered by vac on L lateral thigh. Mild erythema surrounding vac, but less than marked area at time of surgery. No calor. Laboratory Results Last 24 Hours Test 01/14/17 15:36 Vancomycin Level Trough 13.0 mcg/ml Assessment and Plan Assessment and Plan: Ivan Frye is an otherwise healthy 46 yo male with a non-healing MRSA+ wound on his L lateral hip. He is 2 days post I&D. He was initially on vancomycin and pip-tazo, which were stopped yesterday with culture showing sensitivity to Bactrim. Discharge today with home wound vac and 2 weeks Bactrim. F/U with wound clinic and PCP. Discharge planning: home
--- NOTE | 2017-01-16 08:24 | Discharge Summary ---
Discharge Summary Date of Service January 16, 2017. Discharge Summary Admission Date: January 11, 2017 at 15:50 Discharge Date: January 15, 2017 Discharge Disposition: Home with services Principal Diagnosis: MRSA abscess of thigh Problems/Secondary Diagnoses: Cellulitis Procedures: Incision and Debridement Left Thigh Abcess on 01/[address] Smith Consultations: General surgery Wound care Medication Reconciliation New Medications: Hydrocodone/Acetaminophen 5MG/325MG ([place] 5MG/325MG) Tab 1-2 TABLET PO q 6 hrs PRN for Pain, #30 TAB PRN PAIN Sulfamethoxazole-Trimethoprim (Bactrim Ds 800MG/160MG) 1 Tab Tab 1 TAB PO BID for 10 Days, #20 TAB Continued Medications: Sulfamethoxazole-Trimethoprim (Bactrim Ds 800MG/160MG) 1 Tab Tab 1 TAB PO BID, #6 TAB Discharge Exam Patient feeling well in the AM, awaiting insurance authorization for home wound vac, got approval in the afternoon and discharged. Review of Systems: Constitutional: No chills, No fatigue, No fever, No problem reported, No sweats, No weakness, No weight loss Eyes: No diplopia, No discharge, No eye pain, No problem reported, No redness, No worsening of vision ENT: No dental problems, No hearing loss, No nasal symptoms, No problem reported, No sore throat, No tinnitus, No trouble swallowing, No unusual epistaxis Respiratory: No cough, No dyspnea at rest, No dyspnea on exertion, No hemoptysis, No problem reported, No shortness of breath, No sputum, No wheezing Cardiovascular: No PND, No chest pain, No claudication, No edema, No orthopnea, No palpitations, No problem reported Abdomen: No GI bleeding, No constipation, No diarrhea, No nausea, No pain, No problem reported, No vomiting Musculoskeletal: No calf pain, No joint pain, No muscle pain, No problem reported, No swelling Genitourinary - Male: No dysuria, No hematuria, No urinary frequency, No urinary urgency Neurologic: No balance problems, No memory loss, No numbness/tingling, No paralysis, No problem reported, No vertigo, No weakness Psychiatric: No anhedonism, No anxiety, No depression symptoms, No insomnia , No problem reported, No substance abuse Endocrine: No excessive thirst, No excessive urination, No fatigue, No problem reported Integumentary: + problem reported (left thigh wound with wound vac, no severe pain) Physical Exam: General Appearance: WD/WN, no apparent distress Eyes: normal inspection, EOMI, sclerae normal ENT: normal ENT inspection, hearing grossly normal, pharynx normal Neck: supple, no adenopathy, no JVD, trachea midline Respiratory/Chest: chest non-tender, lungs clear, normal breath sounds, no respiratory distress, no accessory muscle use Cardiovascular: regular rate, rhythm, no edema, no gallop, no JVD, no murmur , normal peripheral pulses Abdomen / GI: normal bowel sounds, non tender, soft, no organomegaly Extremities: normal inspection, no calf tenderness, normal capillary refill , no pedal edema, normal range of motion Neurologic/Psychiatric: 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 MRSA abscess left posterior thigh s/p I&D in the OR on 01/[address] Smith - POD #2. Initially treated with Zosyn and Doxycycline and Vancomycin transition to Bactrim DS BID on discharge for 10 more days Note - blood cx's neg. Wound vac in place 2. DVT proph - lovenox. 3. upper abdominal discomfort - resolved today 4. elevated BP w/o Dx of HTN - I discussed this with the patient and asked him to f/u with his PCP to ensure he does not have essential HTN. 5. diarrhea - abx-associated; c. diff negative. Cont probiotics on discharge Total Time Spent: Less than 30 minutes This includes examination of the patient, discharge planning, medication reconciliation, and communication with other providers. Discharge Instructions Please refer to the electronic Patient Visit Report (Discharge Instructions) for additional information. Follow-Up Dr. Smith in two weeks Wound clinic Additional Copies To Martin Smith M.D.; Lamberto Madrid M.D.
[2017-02-07] MEDS ORDERED: SULF800T23 PO (09:07)
== END 2017-01-15 14:45 | disposition home health service (06) | DRG 572 ==
LOC: ENRESERVTM → ENRESERVDT → C.EDB 12:39 → C.4E 15:50 → EDBEDREQSVC 16:15 → C.3E 01-13 10:25
PROVIDERS: ADMIT Family Medicine; ATTEND Internal Medicine
PROC: 0JBM0ZZ Excision of Left Upper Leg Subcutaneous Tissue and Fascia, Open Approach (ICD-10-PCS; principal; 2017-01-12)
PROC: 0JBM0ZZ Excision of Left Upper Leg Subcutaneous Tissue and Fascia, Open Approach (ICD-10-PCS; 2017-01-13)
DX: L03.116 Cellulitis of left lower limb (principal); S70.362A Insect bite (nonvenomous), left thigh, initial encounter; T36.95XA Adverse effect of unspecified systemic antibiotic, initial encounter; B95.62 Methicillin resistant Staphylococcus aureus infection as the cause of diseases classified elsewhere; I10 Essential (primary) hypertension; R19.7 Diarrhea, unspecified; W57.XXXA Bitten or stung by nonvenomous insect and other nonvenomous arthropods, initial encounter; Y92.239 Unspecified place in hospital as the place of occurrence of the external cause; Y92.828 Other wilderness area as the place of occurrence of the external cause

== ENCOUNTER → 2017-07-05 | Outpatient (CLI) | payer BC ==
[~2017-07-05] MED LIST changes: -DRV100 PO; +HYDR-5688 PO
[2017-07-05 17:50] LABS: URINE APPEARANCE CLEAR (CLEAR); URINE BILIRUBIN NEG (NEG); URINE COLOR YELLOW; URINE NITRITE NEG (NEG); URINE PH 6.5 (4.5-7.5); UROBILINOGEN NEG (NEG)
[2017-07-05 17:57] LABS: MANUAL MICROSCOPIC REQUIRED? NO; REVIEW REQ? NO
== END | disposition home or self-care (01) ==
LOC: C.LABBFT 14:26
PROVIDERS: ATTEND Nurse Practitioner
DX: R31.9 Hematuria, unspecified (principal)